=== PATIENT | female | born 1950 | race Caucasian/White ===

== ENCOUNTER 2018-03-13 11:33 | Outpatient (REF) | payer MEDICARE, BC, SELFPAY ==
[2018-03-15 10:54] LABS: Campylobacter PCR SEE COMMENTS; Salmonella PCR SEE COMMENTS; Shiga Toxin PCR SEE COMMENTS; Shigella/Enteroinvasive Ecoli SEE COMMENTS
== END 2018-03-13 11:34 ==
LOC: NCHCN 11:33
PROVIDERS: PCP Internal Medicine; Visit Provider Nurse Practitioner Family
DX: R19.7 Diarrhea, unspecified (principal)
CPT/HCPCS: 87505; 83630; 87177; 87324

== ENCOUNTER 2018-05-10 19:38 | Outpatient (REF) | payer MEDICARE, BC, SELFPAY ==
[2018-05-10 20:55] LABS: COMMENT (LAB VIEW ONLY) 111.54 mg/dL
== END 2018-05-10 19:58 ==
LOC: NCHCN 19:38
PROVIDERS: PCP Internal Medicine; Visit Provider Internal Medicine
DX: E11.9 Type 2 diabetes mellitus without complications (principal)
CPT/HCPCS: 82043; 82570

== ENCOUNTER 2018-06-04 15:57 | Outpatient (REF) | payer MEDICARE, BC, SELFPAY | END 2018-06-04 16:17 | LOC: NCHCN 15:57 | PROVIDERS: PCP Internal Medicine; Visit Provider Nurse Practitioner Family | DX: M25.561 Pain in right knee (principal) | CPT/HCPCS: 87070; 87205 ==

== ENCOUNTER 2018-06-22 19:16 | Outpatient (REF) | payer MEDICARE, BC, SELFPAY ==
[2018-06-22 21:26] LABS: Uric Acid 5.8 mg/dL (2.6-6.0)
== END 2018-06-22 19:36 ==
LOC: NCHCN 19:16
PROVIDERS: PCP Internal Medicine; Visit Provider Nurse Practitioner Family
DX: M11.80 Other specified crystal arthropathies, unspecified site (principal)
CPT/HCPCS: 84550

== ENCOUNTER 2018-12-12 12:32 | Outpatient (REF) | payer MEDICARE, BC, SELFPAY ==
[2018-12-12 21:13] LABS: ALT 32 U/L (12-78); AST 12 U/L (15-37); Albumin 3.7 g/dL (3.4-5.0); Alkaline Phosphatase 117 U/L (46-116); BUN 11 mg/dL (7-18); Bilirubin, Total 0.4 mg/dL (0.2-1.0); Calcium 8.6 mg/dL (8.5-10.1); Chloride 105 mmol/L (98-107); Glucose 103 mg/dL (70-100); HCT 39.5 % (36.0-46.0); HGB 12.8 g/dL (12.0-15.5); Mean Corp. HGB Concentration 32.4 g/dL (32.0-36.0); Mean Corpuscular Hemoglobin 29.3 pg (27.0-33.0); Mean Corpuscular Volume 90.4 fL (80-95); Mean Platelet Volume 9.2 fL (8.0-11.0); Platelet Count 195 x1000/uL (130-400); Potassium 4.1 mmol/L (3.5-5.1); RBC 4.37 m/cumm (4.00-5.20); RBC Distribution Width 15.2 % (11.7-14.6); Sodium 142 mmol/L (136-145); TSH 0.44 uIU/mL (0.358-3.74); Total Protein 6.4 g/dL (6.4-8.2); White Blood Cell Count 8.86 k/cumm (4.4-10.8)
== END 2018-12-12 12:52 ==
LOC: NCHCN 12:32
PROVIDERS: PCP Internal Medicine; Visit Provider Internal Medicine
DX: E11.9 Type 2 diabetes mellitus without complications (principal); I10 Essential (primary) hypertension; E03.9 Hypothyroidism, unspecified; R53.83 Other fatigue
CPT/HCPCS: 80053; 85027; 84443

== ENCOUNTER 2019-01-24 12:44 | Outpatient (REF) | payer MEDICARE, BC, SELFPAY ==
[2019-01-24 20:12] LABS: Alkaline Phosphatase 105 U/L (46-116); C-Reactive Protein 1.29 mg/dL (0.0-0.3); Creatine Kinase 51 U/L (26-192)
[2019-01-24 20:24] LABS: GGT 25 U/L (5-55)
[2019-01-24 20:49] LABS: ESR 18 MM/HR (0-30)
== END 2019-01-24 13:04 ==
LOC: NCHCN 12:44
PROVIDERS: PCP Internal Medicine; Visit Provider Internal Medicine
DX: R94.5 Abnormal results of liver function studies (principal); E11.9 Type 2 diabetes mellitus without complications; M89.9 Disorder of bone, unspecified
CPT/HCPCS: 82550; 85652; 82977; 84075; 86140

== ENCOUNTER 2019-04-24 10:24 | Outpatient (REF) | payer MEDICARE, BC, SELFPAY ==
[2019-04-24 21:21] LABS: ALT 25 U/L (14-59); Anion Gap 9.8 mmol/L (3-11); BUN 15 mg/dL (7-18); CO2 28.2 mmol/L (21.0-32.0); CREATININE 0.72 mg/dL (0.55-1.02); Calcium 8.3 mg/dL (8.5-10.1); Chloride 105 mmol/L (98-107); Glucose 132 mg/dL (70-100); LDL CHOLESTEROL 41 mg/dL (<100); Potassium 3.7 mmol/L (3.5-5.1); Sodium 143 mmol/L (136-145)
[2019-04-24 21:33] LABS: Creatine Kinase 65 U/L (26-192)
== END 2019-04-24 10:44 ==
LOC: NCHCN 10:24
PROVIDERS: PCP Internal Medicine; Visit Provider Internal Medicine
DX: E78.5 Hyperlipidemia, unspecified (principal)
CPT/HCPCS: 80048; 82550; 83721; 84460

== ENCOUNTER 2019-06-07 11:57 | Outpatient (REF) | payer MEDICARE, BC, SELFPAY ==
[2019-06-07 19:23] LABS: ALT 23 U/L (14-59); AST 9 U/L (15-37); Albumin 3.5 g/dL (3.4-5.0); Alkaline Phosphatase 98 U/L (46-116); Anion Gap 13.6 mmol/L (3-11); BUN 18 mg/dL (7-18); Bilirubin, Total 0.2 mg/dL (0.2-1.0); C-Reactive Protein 3.56 mg/dL (0.0-0.3); CO2 26.4 mmol/L (21.0-32.0); CREATININE 0.81 mg/dL (0.55-1.02); Chloride 106 mmol/L (98-107); Creatine Kinase 53 U/L (26-192); Glucose 99 mg/dL (74-106); Potassium 3.2 mmol/L (3.5-5.1); Sodium 146 mmol/L (136-145); Total Protein 6.5 g/dL (6.4-8.2)
[2019-06-07 19:24] LABS: Troponin I < 0.05 ng/Ml (<0.06)
[2019-06-07 19:26] LABS: Abs Immature Grans 0.68 k/cumm (0.0-0.09); HCT 35.6 % (36.0-46.0); HGB 11.6 g/dL (12.0-15.5); Mean Corp. HGB Concentration 32.6 g/dL (32.0-36.0); Mean Platelet Volume 8.8 fL (8.0-11.0); Platelet Count 296 x1000/uL (130-400); RBC 3.87 m/cumm (4.00-5.20); White Blood Cell Count 13.78 k/cumm (4.4-10.8)
[2019-06-07 20:36] LABS: Absolute Lymphocyte Count 1.93 k/cumm (1.2-3.4); Absolute Monocyte Count 0.55 k/cumm (0.11-0.7); Absolute Neutrophil Count 10.47 k/cumm (1.2-6.7)
[2019-06-07 20:37] LABS: Absolute Eosinophil Count 0.14 k/cumm (0.0-0.7); Diff Comment Manual Differential; RBC Morphology Normal
[2019-06-07 20:39] LABS: ESR 73 mm/hr (0-30)
== END 2019-06-07 12:17 ==
LOC: NCHCN 11:57
PROVIDERS: PCP Internal Medicine; Visit Provider Internal Medicine
DX: R42 Dizziness and giddiness (principal); R07.89 Other chest pain
CPT/HCPCS: 80053; 82550; 85652; 84484; 85025; 86140

== ENCOUNTER 2019-06-27 12:21 | Outpatient (REF) | payer MEDICARE, BC, SELFPAY ==
[2019-06-27 19:10] LABS: COMMENT (LAB VIEW ONLY) 94.33 mg/dL; Microalb ug/mg Crea 24.6 ug/mg Cr
== END 2019-06-27 12:41 ==
LOC: NCHCN 12:21
PROVIDERS: PCP Internal Medicine; Visit Provider Internal Medicine
DX: E11.9 Type 2 diabetes mellitus without complications (principal); E78.5 Hyperlipidemia, unspecified; M35.3 Polymyalgia rheumatica
CPT/HCPCS: 82043; 82570

== ENCOUNTER 2019-08-29 12:54 | Outpatient (REF) | payer MEDICARE, BC, SELFPAY ==
[2019-08-29 19:53] LABS: ESR 16 mm/hr (0-30)
== END 2019-08-29 13:14 ==
LOC: NCHCN 12:54
PROVIDERS: PCP Internal Medicine; Visit Provider Internal Medicine
DX: M35.3 Polymyalgia rheumatica (principal); E11.9 Type 2 diabetes mellitus without complications; F51.04 Psychophysiologic insomnia
CPT/HCPCS: 85652

== ENCOUNTER 2019-09-18 10:57 | Outpatient (REF) | payer MEDICARE, BC, SELFPAY | END 2019-09-18 11:17 | LOC: NCHCN 10:57 | PROVIDERS: PCP Internal Medicine; Visit Provider Nurse Practitioner Family | DX: L03.031 Cellulitis of right toe (principal) | CPT/HCPCS: 87070; 87205 ==

== ENCOUNTER 2020-02-17 16:47 | Outpatient (REF) | payer MEDICARE, BC, SELFPAY ==
[2020-02-17 19:34] LABS: TSH 0.31 uIU/mL (0.36-3.74)
== END 2020-02-17 17:07 ==
LOC: NCHCN 16:47
PROVIDERS: PCP Internal Medicine; Visit Provider Nurse Practitioner Family
DX: E03.9 Hypothyroidism, unspecified (principal)
CPT/HCPCS: 84443

== ENCOUNTER 2020-11-24 13:44 | Outpatient (REF) | payer MEDICARE, BC, SELFPAY ==
--- OUTSIDE RECORDS SUMMARY | 2020-11-24 13:49 | XMS_ITS ---
:1950 Author Care Team Providers Name Role Phone PAZ STRAUSS MD Primary Care Provider [phone] Allergies Code Code System Name Reaction Severity Status Onset 2670 RxNorm Codeine ? ? Active ? 283970 RxNorm Dilaudid ? ? Active ? 67180 RxNorm Dyazide ? ? Active ? 4821 RxNorm Glipizide ? ? Active ? 809462 RxNorm Levemir U-100 ? ? Active ? Insulin 83663 RxNorm Lisinopril ? ? Active ? 93712 RxNorm Locoid ? ? Active ? 6809 RxNorm Metformin ? ? Active ? Sulfa ? ? Active ? (Sulfonamide Antibiotics) 441228 RxNorm Vicodin ? ? Active ? 943020 RxNorm Zocor ? ? Active ? Medications Name Status Start Date Stop Date ? ? Advair Diskus 250 mcg-50 mcg/dose Completed ? 08/07/2018 powder for inhalation Advair Diskus 500 mcg-50 mcg/dose powder for inhalation Active ? Not available Take 1 inhalation every morning. amoxicillin 500 mg capsule Active ? Not a vailable amoxicillin 875 mg-potassium Active ? Not available clavulanate 125 mg tablet atorvastatin 10 mg tablet Active ? Not av ailable BD Ultra-Fine Vivienne Pen Needle 32 gauge Active ? Not available x BD Ultra-Fine Short Pen Needle 31 gauge Active ? Not available x 11/29 bupropion HCl SR 150 mg tablet,12 hr Active ? Not available sustained-release Centrum Silver Active ? Not available 1 tablet daily every evening Fish Oil 1,000 mg (120 mg-180 mg) capsule Active ? Not available Take 3 capsules every day by oral route in the evening. fluconazole 150 mg tablet Completed ? 2018 fluticasone propionate 110 mcg/actuation HFA aerosol inhaler Act gilles ? Not available Inhale 1 puff twice a day by inhalation route as needed. furosemide 20 mg tablet Active ? Not avai lable Take 1 tablet every morning glimepiride 2 mg tablet Active ? Not avai lable IBU 800 mg tablet Completed ? 08/13/2018 indomethacin 25 mg capsule Completed ? 08/13 Take 1 capsule twice a day by oral route. Lantus Solostar U-100 Insulin 100 Active ? Not available unit/mL (3 mL) subcutaneous pen levofloxacin 250 mg tablet Completed ? 08/07 levofloxacin 750 mg tablet Completed ? 08/07 levothyroxine Active ? Not available 150 MCG every morning levothyroxine 150 mcg tablet Active ? Not available losartan 100 mg tablet Active ? Not avail able losartan 50 mg tablet Active ? Not availa ble meloxicam 15 mg tablet Completed ? 8 methylprednisolone 4 mg tablets in a Active ? Not available dose pack metoprolol tartrate 25 mg tablet Active ? Not available mirtazapine 15 mg tablet Active ? Not renita ilable montelukast 10 mg tablet Active ? Not renita ilable mupirocin 2 % topical ointment Completed ? 0 08/07/2018 prednisone 10 mg tablet Completed ? 07/12/20 18 prednisone 20 mg tablet Active ? Not avai lable ProAir HFA 90 mcg/actuation aerosol inhaler Completed ? 08/13/2018 Inhale 2 puffs every 4 hours by inhalation route. Restasis 0.05 % eye drops in a dropperette Active ? Not available INSTILL 1 DROP INTO AFFECTED EYE(S) BY OPHTHALMIC ROUTE EVERY 1 2 HOURS Serevent Diskus 50 mcg/dose powder for Active ? Not available inhalation Shingrix (PF) 50 mcg/0.5 mL Active ? Not available intramuscular suspension, kit Silenor 3 mg tablet Active ? Not availabl e torsemide 20 mg tablet Active ? Not avail able tramadol 50 mg tablet Active ? Not availa ble Vitamin C 1,000 mg tablet Completed ? 2018 Take 1 tablet every day by oral route. Problems Name Status Onset Date Source ? Diabetes Mellitus Active 07/12/2018 ? Essential Hypertension Active 07/12/2018 ? Verruca Vulgaris Active 08/07/2018 ? Hypothyroidism Active 08/07/2018 ? Tobacco User Active 08/07/2018 ? Insomnia Active 08/07/2018 ? Migraine Active 08/07/2018 ? Serous Otitis Media Active 08/07/2018 ? Allergic Rhinitis Active 08/07/2018 ? Chronic Obstructive Lung Disease Active 08/07/2018 ? Gastroesophageal Reflux Disease Active 08/07/2018 ? Irritable Bowel Syndrome Active 08/07/2018 ? Kidney Stone Active 08/07/2018 ? Psoriasis Active 08/07/2018 ? Alopecia Active 08/07/2018 ? Low Back Pain Active 08/07/2018 ? Knee Pain Active ? History Procedures Date Name Performed by ? 08/17/2018 Knee Arthroscopy/surgery Information not available Notes: R knee arthr. w/limited chondr oplasty LFC w/PMM of posterior horn 07/17/1996 Cholecystectomy Information not avai lable Notes: Laparoscopic w/ Operative Chol angiogram ? Hysterectomy Information not avai lable ? Orthopedic Surgery Information not avai lable Notes: 2004 & 2007 shoulder scopes 07/12/2018 XR, Tibia + Fibula, 2 View [facility] Radiology (Internal) [address], [place] [id number] (Work Place) 07/12/2018 US, Duplex, Venous, Lower Extremity, Nor [facility] Radiology (Internal) Unilateral [address] [place] [address] (Work Place) 07/12/2018 MRI, Knee, W/o Contrast [facility] Radiology (Internal) [address] [place] [address] (Work Place) Results Lab Results Date Name Specimen Result Interpretation Description Value Range Status Address ? 12/22/2019 CBC W/ Auto BLD ? Wbc 9.7 10*[facility] L ab (Internal) : [address] ? ? BLD ? Rbc 4.15 4.10-5.30 Final [place] 10*6/uL 10*6/uL [facility] L [facility] (Internal) : [address] ? ? BLD ? Hgb 12.7 g/dL 12.0-16.0 Final Nort h g/dL [facility] L ab (Internal) : [address] ? ? BLD ? Hct 38.5 % 37.0-47.0 Final [facility] L ab (Internal) : [address] ? ? BLD ? Mcv 92.8 fL 80.0-96.0 [facility] [address] ? ? BLD ? Mch 30.6 pg 26.0-32.0 Final [facility] L ab (Internal) : [address] ? ? BLD ? Mchc 33.0 g/dL 31.0-35.0 Final Nort h g/dL [facility] L ab (Internal) : [address] ? ? BLD High Rdw 15.1 % 11.5-14.5 Final [facility] L ab (Internal) : [address] ? ? BLD ? Plt 188 10*3/uL 130-450 Final Nort h 10*3/uL [facility] L ab (Internal) : [address] ? ? BLD ? Anc 7.49 ? [facility] 10*3/uL [facility] L ab (Internal) : [address] ? ? BLD High Nlr 5.90 0.00-3.20 Final [facility] L ab (Internal) : [address], [place] ? ? BLD High Neutro 77.2 % 40.0-75.0 Final [facility] L ab (Internal) : [address] ? ? BLD Low Lymph 13.1 % 20.0-50.0 Final [facility] L ab (Internal) : [address] ? ? BLD ? [place] 6.0 % 2.0-10.0 Final [facility] L ab (Internal) : [address] ? ? BLD ? Eos 2.8 % 1.0-6.0 % Final [facility] L ab (Internal) : [address] ? ? BLD ? Baso 0.3 % 0.0-1.0 % Final [facility] L ab (Internal) : [address] ? ? BLD ? Ig 0.6 % 0.0-0.9 % Final [facility] L ab (Internal) : [address] t 12/22/2019 Urinalysis, UR ? UA-color yellow pale Final [place] Dipstick, yellow [facility] Micro (Internal) : [address], [place] ? ? UR ? UA-appea clear clear Final [place] r [facility] ab (Internal) : [address] ? ? UR ? UA-spec 1.015 1.003-1.0 Final [place] [facility] ab (Internal) : [address] [place] ? ? UR ? UA-pH 5.5 [pH] 4.6-8.0 Final [place] [pH] [facility] ab (Internal) : [address] ? ? UR ? [facility]A-leuk negative negative [facility] [address] ? ? UR ? UA-nitri negative negative Final [facility] ab (Internal) : [address] ? ? UR ? UA-prot negative negative Final [facility] ab (Internal) : [address] ? ? UR ? UA-gluc negative negative Final [facility] ab (Internal) : [address] [place] ? ? UR ? UA-keton negative negative Final [facility] ab (Internal) : [address] [place] ? ? UR ? UA-urobi normal normal Final [facility] ab (Internal) : [address] [place] ? ? UR ? UA-bili negative negative Final [facility] ab (Internal) : [address] [place] ? ? UR ABNORMAL UA-blood trace negative Final [facility] ab (Internal) : [address] 12/22/2019 Urinalysis, UR ? UA-WBC 0-3 [hpf] 0-3 [hpf] F inal [place] Microscopic Count Hospital L ab (Internal) : [address] ? ? UR ? UA-RBC 0-2 [hpf] 0-2 [hpf] Final [facility] ab (Internal) : [address] ? ? UR ? UA-bacte rare [hpf] none seen Final [place] nathen [hpf] [facility] ab (Internal) : [address] ? ? UR ? UA-epith rare [hpf] none seen Final [place] elial [hpf] [facility] (Internal) : [address] ? ? UR ABNORMAL UA-mucus rare [hpf] none seen Final [place] [hpf] [facility] (Internal) : [address] 12/22/2019 RBC BLD ? Aniso small ? Final [place] Morphology, Count ry Blood Hospital L ab (Internal) : [address] ? ? BLD ? Polychro occasional ? Final Nor th m [facility] (Internal) : [address] 12/22/2019 D-dimer, PLASMA ? Dimq 0.42 mg/L 0.00-0.50 Final [place] Quant, mg/L [facility] Plasma Hospital L ab (Internal) : [address] 12/22/2019 CMP, Serum S High g/r 149 mg/dL 74-106 Final [place] or Plasma mg/dL [facility] (Internal) : [address] ? ? S ? Bun 16 mg/dL 7-17 Final [place] mg/dL [facility] (Internal) : [address] ? ? S ? Crea 0.70 mg/dL 0.52-1.04 Final Nor th mg/dL [facility] (Internal) : [address] ? ? S ? Ca 9.4 mg/dL 8.4-10.2 Final [place] mg/dL [facility] (Internal) : [address] ? ? S ? Na 139 mmol/L 137-145 Final [place] mmol/L [facility] ab (Internal) : [address] ? ? S ? K 4.3 mmol/L 3.5-5.1 Final [place] mmol/L [facility] L ab (Internal) : [address] ? ? S ? Cl 99 mmol/L 98-107 Final [place] mmol/L [facility] (Internal) : [address] ? ? S ? Tco2 27.0 mmol/L 22.0-30.0 Final No rth mmol/L [facility] (Internal) : [address] ? ? S ? Tp 7.3 g/dL 6.3-8.2 Final [place] g/dL [facility] L [facility] (Internal) : [address] ? ? S ? Alb 4.3 g/dL 3.5-5.0 Final [place] g/dL [facility] L [facility] (Internal) : [address] ? ? S ? Tbil 0.6 mg/dL 0.2-1.3 Final [place] mg/dL [facility] L [facility] (Internal) : [address] ? ? S ? Alp 88 U/L 38-126 Final [place] U/L [facility] L ab (Internal) : [address] ? ? S ? Alt 21 U/L 9-52 U/L Final [place] (Sgpt) [facility] (Internal) : [address] ? ? S ? Ast 23 U/L 14-36 U/L Final [place] (Sgot) [facility] (Internal) : [address] 12/22/2019 CRP, High S High Rcrp 6.94 mg/dL 0.10-0.30 Fin al [place] Sensitivity mg/dL Count ry , Serum or Hospit al Lab Plasma (Internal) : [address] 08/02/2018 CBC W/ Auto BLD - Wbc 8.9 10*3/uL 5.0-10.0 F inal [place] Diff 10*3/uL [facility] (Internal) : [address] ? ? BLD Low Rbc 4.08 4.10-5.30 Final [place] 10*6/uL 10*6/uL [facility] (Internal) : [address] ? ? BLD - Hgb 12.2 g/dL 12.0-16.0 Final Nort h g/dL [facility] L ab (Internal) : [address] ? ? BLD - Hct 37.6 % 37.0-47.0 Final [place] % [facility] L ab (Internal) : [address] ? ? BLD - Mcv 92.2 fL 80.0-96.0 Final [facility] L ab (Internal) : [address] ? ? BLD - Mch 29.9 pg 26.0-32.0 Final [facility] Hospital L ab (Internal) : [address] ? ? BLD - Mchc 32.4 g/dL 31.0-35.0 Final Nort h g/dL [facility] L ab (Internal) : [address] ? ? BLD High Rdw 15.5 % 11.5-14.5 Final [facility] L ab (Internal) : [address] ? ? BLD - Plt 167 10*3/uL 130-450 Final Nort h 10*3/uL [facility] L ab (Internal) : [address] ? ? BLD - Anc 6.60 ? Final [place] 10*3/uL [facility] L ab (Internal) : [address] ? ? BLD - Neutro 74.2 % 40.0-75.0 Final [facility] L ab (Internal) : [address] ? ? BLD Low Lymph 16.0 % 20.0-50.0 Final [facility] L ab (Internal) : [address] ? ? BLD - [place] 4.9 % 2.0-10.0 Final [facility] L ab (Internal) : [address] ? ? BLD - Eos 3.0 % 1.0-6.0 % Final [facility] L ab (Internal) : [address] ? ? BLD - Baso 0.7 % 0.0-1.0 % Final [facility] Hospital L ab (Internal) : [address] ? ? BLD High Ig 1.2 % 0.0-0.9 % Final [facility] Hospital L ab (Internal) : [address] 08/02/2018 BMP, Serum S High g/r 143 mg/dL 74-106 Final North or Plasma mg/dL [facility] L ab (Internal) : [address] ? ? S - Bun 13 mg/dL 7-17 Final North mg/dL [facility] L ab (Internal) : [address] ? ? S - Crea 0.60 mg/dL 0.52-1.04 Final Nor mg/dL [facility] L ab (Internal) : [address] ? ? S - Ca 8.8 mg/dL 8.4-10.2 Final [place] mg/dL [facility] L ab (Internal) : [address] ? ? S - Na 141 mmol/L 137-145 Final [place] mmol/L [facility] L ab (Internal) : [address] ? ? S - K 4.2 mmol/L 3.5-5.1 Final [place] mmol/L [facility] L ab (Internal) : [address] ? ? S - Cl 106 mmol/L 98-107 Final [place] mmol/[facility] L ab (Internal) : [address] ? ? S - Tco2 25.0 mmol/L 22.0-30.0 Final No rth mmol/L [facility] L ab (Internal) : [address] 08/02/2018 RBC BLD - Aniso small ? Final [place] Morphology, Count Blood Hospital L ab (Internal) : [address] ? ? BLD - Polychro occasional ? Final [facility] L ab (Internal) : [address] 08/03/2017 Venipunctur BLD ? Venpn* ? ? Final [facility] L ab (Internal) : [address] 08/03/2017 Neutrophil BLD ? Anc-manu 6.95 ? Final [place] Count, al 10*3/uL [facility] Lab (Anc), (Internal) : Blood [address] t 08/03/2017 Differentia BLD High Polys 77 % 40-75 % Final [place] l, Manual, Countr y Blood Hospital L ab (Internal) : [address] ? ? BLD ? Bands 4 % 0-5 % Final [facility] L ab (Internal) : [address] ? ? BLD Low Lymphs 10 % 20-50 % Final [facility] L ab (Internal) : [address] ? ? BLD ? [place] 4 % 2-10 % Final [facility] L ab (Internal) : [address] ? ? BLD ? Eos 3 % 0-6 % Final [facility] Hospital L ab (Internal) : [address] ? ? BLD High Baso 2 % 0-1 % Final [facility] Hospital L ab (Internal) : [address] ? ? BLD ? Atyp 0 % ? Final [facility] L ab (Internal) : [address] ? ? BLD ? Plts, adequate adequate Final [place] Est. [facility] L ab (Internal) : [address] ? ? BLD ABNORMAL RBC abnormal normal Final [place] [facility] (Internal[facility] : [address] ? ? BLD ? Aniso occasional ? Final [facility] L ab (Internal) : [address] ? ? BLD ? Polychro occasional ? Final Nor th m [facility] L ab (Internal) : [address] 08/03/2017 Renal S High g/r 134 mg/dL 74-106 Final Nor th Function mg/dL [facility] Serum (Internal) : [address] ? ? S ? Bun 13 mg/dL 7-17 Final North mg/dL [facility] L ab (Internal) : [address] ? ? S ? Crea 0.70 mg/dL 0.52-1.04 Final Nor th mg/dL [facility] L ab (Internal) : [address] ? ? S ? Ca 9.0 mg/dL 8.4-10.2 Final North mg/dL [facility] L ab (Internal) : [address] ? ? S ? Phos 4.0 mg/dL 2.5-4.5 Final [place] mg/dL [facility] L ab (Internal) : [address] t ? ? S ? Na 138 mmol/L 137-145 Final North mmol/L [facility] L ab (Internal) : [address] ? ? S ? K 4.1 mmol/L 3.5-5.1 Final [place] mmol/L [facility] L ab (Internal) : [address] ? ? S ? Cl 103 mmol/L 98-107 Final [place] mmol/L [facility] L ab (Internal) : [address] ? ? S ? Tco2 24.0 mmol/L 22.0-30.0 Final No rth mmol/L [facility] L ab (Internal) : [address] ? ? S ? Alb 4.1 g/dL 3.5-5.0 Final [place] g/dL [facility] L [facility] (Internal) : [address] ? ? S Low GFR 83 >89 Final [place] (Calc) [facility] L [facility] (Internal) : [address] t 08/03/2017 CBC W/ Auto BLD ? Wbc 8.6 10*3/uL 5.0-10.0 F inal [place] Diff 10*3/uL [facility] L ab (Internal) : [address] ? ? BLD ? Rbc 4.11 4.10-5.30 Final [place] 10*6/uL 10*6/uL [facility] L ab (Internal) : [address] ? ? BLD Low Hgb 11.9 g/dL 12.0-16.0 Final Nort h g/dL [facility] L ab (Internal) : [address] ? ? BLD ? Hct 37.4 % 37.0-47.0 Final [facility] L ab (Internal) : [address] ? ? BLD ? Mcv 91.0 fL 80.0-96.0 Final [facility] L ab (Internal) : [address] ? ? BLD ? Mch 29.0 pg 26.0-32.0 Final [facility] Hospital L ab (Internal) : [address] ? ? BLD ? Mchc 31.8 g/dL 31.0-35.0 Final Nort h g/dL [facility] L ab (Internal) : [address] t ? ? BLD High Rdw 15.4 % 11.5-14.5 Final [facility] L ab (Internal) : [address] ? ? BLD ? Plt 182 10*3/uL 130-450 Final Nort h 10*3/uL [facility] L ab (Internal) : [address], [address] Past Encounters 06/25/2020 Stress Fracture of Tibia; Antalgic Gait Capri Yates, PT CWS: [address] [facility], [address], [place] [address], Ph. 05/26/2020 Stress Fracture of Tibia; Antalgic Gait Capri Yates, PT CWS: [address] [facility], [address], [place] [address], Ph. 06/25/2019 Calcaneal Spur; Pain in Right Heel; Abno rmal Posture; Stiffness of Right Ankle; Muscle Weakness Sharon Fox, PT: [address] [facility] [facility] [address], [place] [address], Ph. Social History Tobacco Smoking Status Current Every Day Smoker Vaccine List None recorded. Plan of Care Reminders Provider Appointments None ? ? recorded. Lab None ? ? recorded. Referral None ? ? recorded. Procedures None ? ? recorded. Surgeries None ? ? recorded. Imaging None ? ? recorded. Vitals 08/02/2018 11:30AM Follow Up 30 Height Weight BMI Blood Pressure 162.56 cm 90.22 kg 34.1 kg/m2 186/82 mm[Hg] 07/12/2018 11:30AM Consult 30 Height Weight BMI Blood Pressure 162.56 cm 86.18 kg 32.6 kg/m2 144/76 mm[Hg] 01/13/2011 Height Weight 160.02 cm 86.18 kg 11/18/2010 Height Weight 160.02 cm 86.18 kg 09/30/2010 Height Weight 160.02 cm 86.18 kg
[2020-11-24 16:47] LABS: Hemoglobin A1C 6.7 % (<5.7)
[2020-11-24 16:55] LABS: Calcium 8.5 mg/dL (8.5-10.1); TSH (W/Ref FT4) 1.62 uIU/mL (0.36-3.74)
[2020-11-26 01:17] LABS: Vitamin D 25 Total 24.3 ng/mL (30-100)
== END 2020-11-24 13:45 | disposition home or self-care (01) ==
LOC: NCHCN 13:44
PROVIDERS: PCP Internal Medicine; Visit Provider Nurse Practitioner Family
DX: E11.9 Type 2 diabetes mellitus without complications (principal); E89.0 Postprocedural hypothyroidism; M89.9 Disorder of bone, unspecified
CPT/HCPCS: 82306; 82310; 83036; 84443

== ENCOUNTER 2020-12-01 21:28 | Outpatient (REF) | payer MEDICARE, BC, SELFPAY ==
[2020-12-01 17:41] LABS: ALT 45 U/L (14-59); AST 26 U/L (15-37); Albumin 3.7 g/dL (3.4-5.0); Alkaline Phosphatase 88 U/L (46-116); Bilirubin, Direct 0.1 mg/dL (0.0-0.2); Bilirubin, Total 0.5 mg/dL (0.2-1.0); Total Protein 6.1 g/dL (6.4-8.2)
[2020-12-01 17:56] LABS: GGT 47 U/L (5-55)
[2020-12-03 04:36] LABS: Vitamin D 25 Total 25.2 ng/mL (30-100)
== END 2020-12-01 21:29 | disposition home or self-care (01) ==
LOC: NCHCN 21:28
PROVIDERS: Nurse Practitioner Family; PCP Internal Medicine; Visit Provider Internal Medicine
DX: R16.0 Hepatomegaly, not elsewhere classified (principal); E89.0 Postprocedural hypothyroidism; E55.9 Vitamin D deficiency, unspecified
CPT/HCPCS: 80076; 82306; 82977

== ENCOUNTER 2021-03-15 19:50 | Outpatient (REF) | payer MEDICARE, BC, SELFPAY ==
[2021-03-17 16:25] LABS: COVID-19 RT-PCR UVMMC Result Positive (Negative)
== END 2021-03-15 19:51 | disposition home or self-care (01) ==
LOC: NCHCN 19:50
PROVIDERS: PCP Internal Medicine; Visit Provider Internal Medicine
DX: Z20.822 Contact with and (suspected) exposure to COVID-19 (principal); R06.02 Shortness of breath
CPT/HCPCS: U0003

== ENCOUNTER 2021-05-13 14:47 | Outpatient (REF) | payer MEDICARE, BC, SELFPAY ==
[2021-05-13 20:28] LABS: COMMENT (LAB VIEW ONLY) 84.44 mg/dL; Microalb ug/mg Crea 7.2 ug/mg Cr
== END 2021-05-13 14:48 | disposition home or self-care (01) ==
LOC: NCHCN 14:47
PROVIDERS: PCP Internal Medicine; Visit Provider Internal Medicine
DX: E11.9 Type 2 diabetes mellitus without complications (principal)
CPT/HCPCS: 82043; 82570

== ENCOUNTER 2022-09-23 11:37 | Outpatient (REF) | payer MEDICARE, BC, SELFPAY ==
[2022-09-23 19:20] LABS: HCT 34.6 % (36.0-46.0); HGB 11.1 g/dL (11.2-15.7); MCH 29.3 pg (27.0-33.0); MCHC 32.1 % (32.0-36.0); MCV 91 fL (80-95); MPV 8.9 fL (8.0-11.0); Platelet Count 163 10^3/uL (130-400); RBC 3.79 10^6/uL (3.93-5.22); RDW 14.9 % (11.7-14.6); RDW-SD 49.6 fL
[2022-09-23 19:41] LABS: ALT 29 U/L (14-59); Anion Gap 6.5 mmol/L (3-11); BUN 13 mg/dL (7-18); CO2 29.5 mmol/L (21.0-32.0); CREATININE 0.7 mg/dL (0.55-1.02); Calcium 8.7 mg/dL (8.5-10.1); Chloride 107 mmol/L (98-107); Creatine Kinase 55 U/L (26-192); Glucose 152 mg/dL (74-106); Potassium 4.4 mmol/L (3.5-5.1); Sodium 143 mmol/L (136-145); TSH 0.19 uIU/mL (0.36-3.74)
[2022-09-23 19:55] LABS: Calculated LDL 15 mg/dL (<100); Cholesterol 99 mg/dL (<200); HDL Cholesterol 32 mg/dL (40-60); Triglyceride 260 mg/dL (<150)
== END 2022-09-23 11:38 | disposition home or self-care (01) ==
LOC: NCHCN 11:37
PROVIDERS: PCP Internal Medicine; Visit Provider Internal Medicine
DX: E11.9 Type 2 diabetes mellitus without complications (principal); F41.8 Other specified anxiety disorders; J32.2 Chronic ethmoidal sinusitis; I10 Essential (primary) hypertension
CPT/HCPCS: 80048; 80061; 82550; 85027; 84443; 84460

== ENCOUNTER 2022-10-24 13:00 | Outpatient (REF) | payer MEDICARE, BC, SELFPAY ==
[2022-10-24 18:50] LABS: HCT 36.5 % (36.0-46.0); HGB 11.6 g/dL (11.2-15.7); MCH 29.3 pg (27.0-33.0); MCHC 31.8 % (32.0-36.0); MCV 92 fL (80-95); MPV 8.9 fL (8.0-11.0); Platelet Count 149 10^3/uL (130-400); RBC 3.96 10^6/uL (3.93-5.22); RDW 15.2 % (11.7-14.6); RDW-SD 50.5 fL; Reticulocyte 2.4 % (0.5-2.4); WBC 7.98 10^3/uL (4.4-10.8)
[2022-10-24 19:04] LABS: Iron 44 ug/dL (50-170); Total Iron Binding Capacity 281 ug/dL (250-450); Transferrin Sat 16 % (15-50)
[2022-10-24 19:31] LABS: Ferritin 151 ng/mL (8-252); TSH (W/Ref FT4) 0.19 uIU/mL (0.36-3.74); Vitamin B12 783 pg/mL (193-986)
[2022-10-24 20:12] LABS: FREE T4 1.13 ng/dL (0.76-1.46)
== END 2022-10-24 13:01 | disposition home or self-care (01) ==
LOC: NCHCN 13:00
PROVIDERS: PCP Internal Medicine; Visit Provider Internal Medicine
DX: D64.9 Anemia, unspecified (principal); E89.0 Postprocedural hypothyroidism
CPT/HCPCS: 85027; 82607; 82728; 83540; 83550; 84439; 84443; 85045

== ENCOUNTER 2023-01-09 13:25 | Outpatient (REF) | payer MEDICARE, BC, SELFPAY ==
[2023-01-09 19:25] LABS: TSH 1.03 uIU/mL (0.36-3.74)
== END 2023-01-09 13:26 | disposition home or self-care (01) ==
LOC: NCHCN 13:25
PROVIDERS: PCP Internal Medicine; Visit Provider Internal Medicine
DX: M75.102 Unspecified rotator cuff tear or rupture of left shoulder, not specified as traumatic (principal); E11.9 Type 2 diabetes mellitus without complications; E03.9 Hypothyroidism, unspecified; Z82.49 Family history of ischemic heart disease and other diseases of the circulatory system
CPT/HCPCS: 84443

== ENCOUNTER 2023-01-25 16:37 | Outpatient (REF) | payer MEDICARE, BC, SELFPAY ==
[2023-01-25 20:49] LABS: C Diff PCR Negative (Negative)
[2023-01-26 23:20] LABS: Campylobacter PCR Negative (Negative); Salmonella PCR Negative (Negative); Shiga Toxin PCR Negative (Negative); Shigella/Enteroinvasive Ecoli Negative (Negative)
== END 2023-01-25 16:38 | disposition home or self-care (01) ==
LOC: NCHCN 16:37
PROVIDERS: PCP Internal Medicine; Visit Provider Nurse Practitioner Family
DX: R19.7 Diarrhea, unspecified (principal)
CPT/HCPCS: 87493; 87505; 83630

== ENCOUNTER → 2023-09-05 08:36 | Outpatient (BNVA) | payer MEDICARE, BC, SELFPAY | PROVIDERS: PCP Internal Medicine; Referring Provider Internal Medicine; Visit Provider Student in an Organized Health Care Education/Training Program | DX: S46.011A Strain of muscle(s) and tendon(s) of the rotator cuff of right shoulder, initial encounter (principal); W10.8XXA Fall (on) (from) other stairs and steps, initial encounter | CPT/HCPCS: 99213 ==

== ENCOUNTER → 2023-09-26 03:14 | Outpatient (CLI) | payer MEDICARE, BC, SELFPAY ==
--- NOTE | 2023-09-26 06:30 | DI.MRI_ITS ---
Exam(s) MR UPPER JOINT RT WO EXAM: MR UPPER JOINT RT WO CLINICAL HISTORY: R SHOULDER PAIN,rt rotator cuff tear,m75.101 TECHNIQUE: Multiplanar multisequence MRI of the shoulder was performed. COMPARISON: CR XR SHOULDER MIN 2V RT from 07/14/2023 FINDINGS: There is motion artifact on all sequences MARROW:There is no evidence of fracture, Hill-Sachs deformity, nor ominous osseous lesions. GLENOHUMERAL JOINT: There is significant superior subluxation of the humeral head in the osseous sapna oid and significant diminution of the subacromial space. There is moderate degenerative change in the glenohumeral joint with joint space narrowing and loss o f articular cartilage. Also small osteophyte on the inferior articular surface of the humeral head. There are no degenerative subarticular cysts. Artifact seen laterally is related to prior remote ro tator cuff surgery tear. ROTATOR CUFF MECHANISM: AC JOINT/ACROMIUM: There postsurgical changes in the AC joint.. There is no evidence of os acromiale. Supraspinatus: There is a large full-thickness tear with retraction musculotendinous junction to the medial 3rd of the humeral head. Some muscle atrophy. Infraspinatus: Also large full-thickness tear of the infraspinatus with retraction of the musculotend inous junction. Muscle atrophy. Teres Minor: Intact. Compensatory hypertrophy evident. No evidence of tear nor muscle atrophy. Subscapularis/anterior cuff: Large full-thickness tear of the anterior cuff also evident. Also with retraction of the musculotendinous junction. BICEPS TENDON: Biceps tendon is within the intertubercular groove but is also perched over the anteri or aspect of the lesser tuberosity. It is not detached from the anterosuperior labrum. LABRUM: There is attenuation of the superior labrum posterior to the biceps attachment site probably related to chronic wear and tear surface attenuation. The posterior labrum also exhibits surface irr egularity. There is no obvious tear of the anterior labrum and inferior labrum. The inferior glenoh umeral ligament appears intact. IMPRESSION: 1. There is evidence of remote rotator cuff surgery. However, there are now large full-thickness tea rs of the supraspinatus, infraspinatus, and anterior cuff-subscapularis with retraction of the muscul otendinous junctions and some muscle atrophy as described above. The teres minor remains intact and exhibits compensatory hypertrophy. 2. There is significant upward subluxation of the humeral head in the osseous glenoid related to the above findings with significant diminution of the subacromial space. 3. The biceps tendon remains attached to the anterosuperior labrum but is perched upon the anterior a spect of the lesser tuberosity 4. There is multifocal labral surface attenuation/surface tearing. 5. There are moderate degenerative changes in the glenohumeral joint. Small joint effusion noted. No loose intra-articular body seen. DATA REPOSITORY:
== END ==
PROVIDERS: PCP Internal Medicine; Visit Provider Student in an Organized Health Care Education/Training Program
DX: S46.011A Strain of muscle(s) and tendon(s) of the rotator cuff of right shoulder, initial encounter (principal); X58.XXXA Exposure to other specified factors, initial encounter; Z98.890 Other specified postprocedural states
CPT/HCPCS: 73221

== ENCOUNTER → 2023-10-03 13:55 | Outpatient (BNVA) | payer MEDICARE, BC, SELFPAY | PROVIDERS: PCP Internal Medicine; Referring Provider Internal Medicine; Visit Provider Student in an Organized Health Care Education/Training Program | DX: S46.011A Strain of muscle(s) and tendon(s) of the rotator cuff of right shoulder, initial encounter (principal); W19.XXXA Unspecified fall, initial encounter | CPT/HCPCS: 99213 ==

== ENCOUNTER → 2023-10-09 02:55 | Outpatient (CLI) | payer MEDICARE, BC, SELFPAY ==
--- NOTE | 2023-10-09 15:00 | DI.CT_ITS ---
Exam(s) CT UPPER EXTREMITY RT WO EXAM: CT UPPER EXTREMITY RT WO CLINICAL HISTORY: Pain, Surgical planning-DOS 10/19,RT ROTATOR CUFF TEAR,S46.011A. TECHNIQUE: Imaging Protocol: Axial computed tomography images with coronal and sagittal reformatted images were created and reviewed. COMPARISON: CR XR SHOULDER MIN 2V RT from 07/14/2023 MR MR UPPER JOINT RT WO from 09/26/2023 FINDINGS: Bones: There is no evidence of fracture or dislocation. Prior distal clavicular resection. The humeral head is superiorly positioned. Spurring at the greater tuberosity. Subjacent subchondra l degenerative cysts. No cellulitic or osteomyelitic changes are identified. No lytic or sclerotic lesions are identified. The bones appear osteoporotic. Joints: Narrowing of the glenohumeral joint space. Mild periarticular spurring. muscular atrophy, particularly supraspinatus. Soft Tissues: Normal. The visualized portions of the lungs are clear. IMPRESSION: Humeral head superiorly positioned consistent with chronic rotator cuff tear. Degenerative changes a t the greater tuberosity and glenohumeral joint. RADIATION DOSE DELIVERED: Total DLP Total DLP DATA REPOSITORY: All CT scans at this facility are submitted to the National Radiology Data Registry (NRDR) Dose Index Registry (DIR) with the [employer] ([employer]). RADIATION OPTIMIZATION: All CT scans at this facility use at least one of these dose optimization te chniques: automated exposure control; mA and/or kV adjustment per patient size (includes targeted exa ms where dose is matched to clinical indication); or iterative reconstruction.
== END ==
PROVIDERS: PCP Internal Medicine; Visit Provider Student in an Organized Health Care Education/Training Program
DX: M75.111 Incomplete rotator cuff tear or rupture of right shoulder, not specified as traumatic (principal)
CPT/HCPCS: 73200

== ENCOUNTER → 2023-10-17 11:20 | Outpatient (BNVA) | payer MEDICARE, BC, SELFPAY | PROVIDERS: PCP Internal Medicine; Referring Provider Internal Medicine; Visit Provider Student in an Organized Health Care Education/Training Program | DX: M75.101 Unspecified rotator cuff tear or rupture of right shoulder, not specified as traumatic (principal); M12.811 Other specific arthropathies, not elsewhere classified, right shoulder; M75.21 Bicipital tendinitis, right shoulder | CPT/HCPCS: 99214 ==

== ENCOUNTER 2023-10-20 05:40 | PSDC | payer MEDICARE, BC, SELFPAY ==
[2023-10-20] VITALS (13 sets, daily range): BP systolic 69–129; BP diastolic 27–61; PULSE 67–110; RESP 12–22; TEMP 36–36.7; O2SAT 93–97; BMI 34.5
[2023-10-20] MEDS: Lactated Ringers 1,000 ML 30 ML IV ×2 (06:44→11:40)
--- NOTE | 2023-10-20 07:00 | W.ANESPRE ---
General Info Date of Service Date Performed: 10/20/23 Height: 5 ft 3 in Weight: 88.5 kg Body Mass Index (BMI): 34.5 Surgical Procedure: Operation Date: 10/20/23 07:40 Proposed Procedure Side Surgeon p Shoulder Reverse Total Arthroplasty, Biceps Tenodesis Right Davide Ward MD Meds Allergies and Home Medications Allergies Allergy/AdvReac Type Severity Reaction Status Date / Time insulin detemir Allergy Severe Hives Verified 10/20/23 06:14 [From Levemir U-100 Insulin] codeine Allergy Intermediate Hives Verified 10/20/23 06:14 gemfibrozil [From Lopid] Allergy Intermediate SWOLLEN Verified 10/20/23 06:14 LIPS glipizide Allergy Intermediate Skin Rash Verified 10/20/23 06:14 hydrocodone [From Vicodin] Allergy Intermediate Hives Verified 10/20/23 06:14 sulfadiazine Allergy Intermediate Skin Rash Verified 10/20/23 06:14 acetaminophen [From Vicodin] Allergy Mild Other (See Verified 10/20/23 06:14 Comment) hydromorphone [From Dilaudid] Allergy Mild Hives Verified 10/20/23 06:14 lisinopril AdvReac Mild COUGH Verified 10/20/23 06:14 metformin AdvReac Mild Diarrhea Verified 10/20/23 06:14 simvastatin AdvReac ACHY Verified 10/20/23 06:14 Home Medication Medication Instructions Recorded albuterol sulfate 90 mcg/actuation 2 puff inhalation Q6H PRN 08/21/23 aerosol inhaler (Ventolin HFA) atorvastatin 10 mg tablet 10 mg PO QHS 08/21/23 cyclosporine 0.05 % eye drops in a 1 drp ophthalmic (eye) Q12H 08/21/23 dropperette (Restasis) duloxetine 60 mg capsule,delayed 60 mg PO HS 08/21/23 release ibuprofen 800 mg tablet 800 mg PO TID 08/21/23 insulin glargine 100 unit/mL (3 70 unit subcut QPM 08/21/23 mL) subcutaneous pen (Lantus Solostar U-100 Insulin) losartan 100 mg tablet 100 mg PO HS 08/21/23 metoprolol succinate 50 mg 50 mg PO HS 08/21/23 tablet,extended release 24 hr (Toprol XL) glimepiride 2 mg tablet 2 mg PO DAILY 09/05/23 torsemide 20 mg tablet 20 mg PO HS 09/05/23 levothyroxine 137 mcg tablet 137 mcg PO .QOD 10/17/23 (Synthroid) levothyroxine 150 mcg capsule 150 mcg PO .QOD 10/17/23 montelukast 10 mg tablet 10 mg PO HS 10/20/23 Current Visit Medications: Current Medications Generic Name Dose Route Start Last Admin Trade Name Freq PRN Reason Stop Dose Admin Ringer's Solution 1,000 mls @ 30 mls/hr 10/20/23 06:00 10/20/23 06:44 IV 10/20/23 23:59 30 mls/hr INFUSION VIKTOR Administration Cefazolin Sodium/Dextrose 2 gm in 50 mls @ 100 mls/hr 10/20/23 06:00 Ancef Duplex IVPB 10/20/23 23:59 PREOP VIKTOR Tranexamic Acid/Sodium Chloride 1,000 mg in 100 mls @ 600 mls/hr 10/20/23 06:00 IVPB 10/20/23 23:59 DIRECTED VIKTOR IV Miscellaneous Supplies 1 each 10/20/23 06:00 Iv Access IV 10/20/23 23:59 DIRECTED VIKTOR Sodium Chloride 0 ml 10/20/23 06:00 Normal Saline Flush 10 Ml Syr IV 10/20/23 23:59 PRN PRN Sodium Chloride 0 ml 10/20/23 06:00 Normal Saline 10 Ml Vial IJ 10/20/23 23:59 DIRECTED PRN Sterile Water 0 ml 10/20/23 06:00 Water,Injection,Sterile 10 Ml Vial IJ 10/20/23 23:59 DIRECTED PRN PFSH Active Problems Active Problems: Problem Status Onset Code Tendonitis of long head of biceps brachii of right shoulder M75.21 Rotator cuff tear arthropathy of right shoulder M75.101, M12.811 Rotator cuff tear, right ~07/30/23 M75.101 Tobacco dependence F17.200 Polymyalgia rheumatica M35.3 Psoriasis L40.9 Collagenous colitis K52.831 GERD (gastroesophageal reflux disease) K21.9 COPD (chronic obstructive pulmonary disease) J44.9 Essential hypertension I10 AYLA (obstructive sleep apnea) G47.33 Nicotine dependence F17.200 Anxiety F41.9 Hyperlipidemia E78.5 Type 2 diabetes mellitus E11.9 Hypothyroidism E03.9 Non-toxic multinodular goiter E04.2 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 states it was just a one time thing, i had it worked up and it ended up being nothing Palpitations Low back pain Gout Non-scarring alopecia Actinic keratosis Nummular eczema Chronic ethmoidal sinusitis Chronic serous otitis media Migraine Medical History Comments:: Unable to lay flat she reports; very uncomfortable' for breathing Surgical History Surgical History History of thyroidectomy History of partial hysterectomy History of cholecystectomy History of appendectomy Tobacco Smoking/Tobacco Use Status: Former Tobacco Use Alcohol Alcohol Intake: never Substance Use Substance use: Never Substance use type: does not use Vital Signs and Lab Results Vital Signs Most Recent Vital Signs in EMR: Most Recent Vital Signs Temp Pulse Resp BP Pulse Ox 36 C L 67 16 123/61 96 10/20/23 06:10 10/20/23 06:10 10/20/23 06:10 10/20/23 06:10 10/20/23 06:10 Lab Results Blood Type / Crossmatch: No Data to Display Complete Blood Count: No Data to Display Complete Metabolic Panel: No Data to Display Liver Function Panel: No Data to Display Coagulation Panel: No Data to Display Cardiac Panel: No Data to Display Arterial Blood Gas: No Data to Display Venous Blood Gas: No Data to Display Pancreas Panel: No Data to Display Thyroid Panel: No Data to Display Infectious Disease: No Data to Display Blood Cultures: No Data to Display Toxicology Panel: No Data to Display Anesthesia Assessment and Plan Anesthesia History Personal History: No History of Anesthesia Complications Family History: No Family History of Anesthesia Complications Exercise Tolerance Exercise Tolerance: Metabolic Equivalents>4 Pertinent Negatives Pertinent Negatives: No Symptoms of GERD and No Major Cardiovascular Symptoms or Complaints Cardiac & Pulmonary Exam Cardiac Exam: Normal S1/S2 Heart Sounds Pulmonary Exam: Clear Bilateral Breath Sounds Implantable Cardiac Device Does patient have a Pacemaker or an ICD?: No Airway Exam Known Difficult Airway: No Mallampati Class: 2 Mouth Opening: Normal (> 3cm) Thyromental Distance: Less than 3 cm Neck Range of Motion: Full ROM Neck Circumference: Normal Teeth Condition: Normal Dentition ASA Classification ASA Score: ASA 2 Emergency Case?: No NPO Status NPO Status: NPO Clears >2 hours, Solids >8 hours Anesthesia Plan Resuscitation Status: Full Code Anesthesia Technique: General Anesthesia Airway Planned: Endotracheal Tube Pain Management: Surgeon and patient request nerve block Monitors Used: Standard Monitors
--- NOTE | 2023-10-20 07:08 | PDOC.DSDIS_ITS ---
Date of service: 10/20/23 Time of Service: 11:00 Discharge Plan Disposition Patient Disposition: Home Condition: Stable Discharge Details Attending Provider: Davide Ward Primary Care Provider: Neri Richards Home Meds and New Rx's Prescriptions: New aspirin 81 mg capsule 81 mg PO DAILY 7 Days Qty: 7 0RF naproxen 250 mg tablet 250 - 500 mg PO BID PRN (Reason: moderate pain and swelling) Qty: 30 0RF Rx Instructions: take with a meal tramadol 50 mg tablet 50 mg PO Q8H PRN (Reason: severe pain) Qty: 9 0RF Continued levothyroxine 150 mcg capsule 150 mcg PO .QOD glimepiride 2 mg tablet 2 mg PO DAILY Patient Comments: half tab 1 mg torsemide 20 mg tablet 20 mg PO HS metoprolol succinate [Toprol XL] 50 mg tablet extended release 24 hr 50 mg PO HS atorvastatin 10 mg tablet 10 mg PO QHS duloxetine 60 mg capsule,delayed release(DR/EC) 60 mg PO HS losartan 100 mg tablet 100 mg PO HS albuterol sulfate [Ventolin HFA] 90 mcg/actuation HFA aerosol inhaler 2 puff inhalation Q6H PRN cyclosporine [Restasis] 0.05 % dropperette 1 drp ophthalmic (eye) Q12H insulin glargine [Lantus Solostar U-100 Insulin] 100 unit/mL (3 mL) insulin pen 70 unit subcut QPM levothyroxine [Synthroid] 137 mcg tablet 137 mcg PO .QOD montelukast 10 mg tablet 10 mg PO HS Patient Comments: TAKE 1 TABLET BY MOUTH ONCE DAILY Discontinued ibuprofen 800 mg tablet 800 mg PO TID Discharge Instructions Additional Instructions: Surgery: Right reverse total shoulder arthroplasty (constrained liner) with biceps tenodesis Activity: Do not lift anything heavier than a coffee. You should keep your arm at your side in a relatively neutral position at all times except for gentle range of motion exercises, physical therapy, and essential activities. You should use the sling whenever you are out of the house. You may have to adjust the abduction pillow or remove it for comfort. At home it is best to remove the sling and rest the arm on a pillow at your side or support the operative side with your other hand. A physical therapy prescription will be sent electronically to start in about 3 weeks. Prescriptions: Aspirin 81 mg take 1 daily to prevent a blood clot for 1 weeks, starting tomorro w morning Naproxen 250 mg take 1-2 every 12 hours with a meal as needed for moderate pain Tramadol 50 mg take 1 every 8 hours as needed for severe pain You may use [id number] Tylenol (acetaminophen) as needed for mild pain. These pain medications may be taken all at once or in different combinations as needed. Also, recommend Colace (docusate) as a stool softener as surgery and pain medicine cause constipation. You may try [id number] diphenhydramine (Benadryl) 25-50 mg nightly as a sleep aid Dressings: Leave dressing in place until follow-up. Keep clean and dry at all times. No showers please. Follow-up: 10-[address] Ward You may take off the leg compression stockings this evening at home. You may also leave them on a few days longer if you have a history of leg swelling or edema. Please call the office during business hours with any questions or concerns. Let us know right away if you develop any redness, drainage, fevers, chest pain, or trouble breathing. Do not drink alcohol or drive for at least 24 hours after anesthesia. Discharge Orders Discharge Orders: Discharge Order (Routine); Ordered 10/20/23 Ordered By: Elizabeth Turpin DS: Diagnosis Discharge Diagnosis (1) Rotator cuff tear arthropathy of right shoulder: Status: Acute
[2023-10-20] MEDS: ceFAZolin 2 GM/50 ML BAG IVPB (07:48)
[2023-10-20] MEDS: TRANEXAMIC ACID/SOD. CHL. 1,000 MG/100 ML BAG 600 MG IVPB (07:53)
--- NOTE | 2023-10-20 08:19 | W.ANESNERVE ---
Nerve Block Single Injection Procedure Date and Time Date Performed: 10/20/23 Procedure Start: 07:20 Location Where Procedure Performed Procedure Location: Day Surgery Unit Reason Performed: Postoperative Analgesia Requesting Provider: Davide Ward Timeout Performed Timeout Performed: Yes Monitoring Used ECG, Blood Pressure, SpO2 and See EMR for corresponding vital signs Sterility Sterility: Hand Hygiene, Surgical Cap, Surgical Mask, Sterile Gloves, Sterile Drape/Sheet and Chlorhexidine Sedation Given During Procedure Sedation Given (Indicate Dose Given): Versed IV Dose:: 1mg Patient Mental Status Patient Mental Status: Awake Nerve Block 1st Nerve Block: Laterality: Right Block Type: Interscalene Ultrasound Image Saved?: Yes Needle / Catheter Used: 80mm SonoPlex II Local Anesthetic Bolus (Indicate Dose Given): Lidocaine used for local infiltration of skin, Injected in 3-5ml increments after negative blood aspiration, Bupivacaine 0.5% Dose:: 10ml and Exparel Dose:: 10ml Additives (Indicate Dose Given): None Ultrasound: Sterile probe cover and gel used Nerve Stimulator: Supplement to Ultrasound use and No twitch or parasthesia noted < 0.5 mA Paresthesia: None Procedure Tolerated: No Complications and Patient tolerated well Procedure Outcome: Successful Procedure Comment: Uneventful block Performed By: Pepe Weller
--- NOTE | 2023-10-20 09:49 | ROE_ITS ---
Date of service: 10/20/23 Time of Service: 07:30 Operative Note Operative Note DATE OF PROCEDURE: 10/20/23 PRE-OP DIAGNOSIS: Right: 1. Rotator cuff arthropathy 2. Long head of the biceps tendinopathy POST-OP DIAGNOSIS: same PROCEDURE: Right: 1. Reverse total shoulder arthroplasty, CPT # [address] 2. Open biceps tenodesis, CPT # 71624 The assistant hall director was medically required as this procedure involves retraction, protection of neurovascular structures, and manipulation of multiple instruments and implants at the same time, which cannot be done without a skilled assistant hall director. SURGEON: Davide Ward PATCH MACHINE OPERATOR: Elizabeth Turpin ANESTHESIA TYPE: Local By Surgeon, General LMA/ETT and Primary Nerve Block Refer to Anesthesia Record ESTIMATED BLOOD LOSS: 75 COMPLICATIONS: None Patient was transported to: PACU Patient's condition: stable Implants: [employer] modular glenoid system baseplate 24 mm 10 degree full wedge augment [employer] modular glenoid system central post 20 mm [employer] modular glenoid system peripheral locking screws 28 mm inferior, 32 mm superior, 16 mm posterior, 16 mm anterior [employer] modular glenoid system glenosphere 36 +4 mm lateralized [employer] humeral stem 135 degrees size 6 [employer] suture cup size 36 neutral offset [employer] humeral insert size 36+6 mm CONSTRAINED Indications: Please see complete medical record for details. Findings: Significant long head biceps tenosynovitis and partial tearing medially displaced over the lesser tuberosity, largely devoid chronic rotator cuff tearing with significant bursitis absent majority subscapularis and supraspinatus infraspinatus. Procedure Description: In the operating room, general anesthesia was induced. The patient was positioned beachchair on the operating room table. All bony prominences were well-padded. Preoperative antibiotics were administered. The shoulder was prepped and draped in the usual sterile fashion for shoulder arthroplasty. The correct patient, procedure, and side of the procedure were all verified prior to incision. The deltopectoral approach was preinjected with 0.25% bupivacaine containing epinephrine and taken to the anterior shoulder. Care was taken to bluntly dissect the interval between the deltoid and pectoralis major muscles and to identify the cephalic vein within its fat stripe. The the vein was mobilized laterally, but there were multiple small branches instead of 1 large segment and a few of the smaller ones had to be coagulated. Subdeltoid space and conjoined tendon were freed of adhesions and bursitis removed. The long head of the biceps tendon was identified actually dislocated position medial to the lesser tuberosity. The uppermost margin of the pectoralis major tendon was released from the proximal humerus. The long head of the biceps tendon secured with suture tape and withdrawn inferiorly for later repair. The biceps tendon was amputated and followed proximally open the rotator interval and shoulder. Bursitis was removed exposing an essentially bald greater and lesser tuberosity. The subscapularis remnant was removed and tenotomy performed on bringing the arm gently into external rotation and adduction. Appropriate coagulation was achieved especially interiorly. The anatomic neck was cut using an oscillating saw with the humeral head bone brought back table in case there was a need for future bone grafting. The proximal humerus was delivered from the wound with adduction and external rotation. The proximal humeral protection plate was used to provisionally confirm suture cup and glenosphere size. Reamers were started appropriately posterior to the bicipital groove taking care to maintain in line approach with the humeral canal. Sequential reaming was done from size 5 up to size 7. Next, the broaches were sequentially used to open the proximal humerus starting with a size 5 and tempting size 7, but the 6 was sunk to the appropriate depth while maintaining approximately 25 degrees retroversion. There was good metaphyseal fit and rotational control of the proximal humerus with this size. The neutral offset guide was used to ream for the suture cup. Attention was then turned to the glenoid and retractors were placed and a circumferential release performed using the long head of the biceps remnant to remove soft tissue about the glenoid rim. Care was taken inferiorly to work on bone only between 5 and 7:00 o'clock and bluntly elevate tissues inferiorly. The VIP guide was placed on the glenoid and used to confirm placement and trajectory of the central guidepin. The guidepin was inserted and advanced just through the far cortex ensuring adequate central fixation length. The glenoid was prepared according to printing equipment mechanic apprentice specifications for a augmented baseplate and central post. The baseplate was impacted onto the glenoid surface. The locking guide was then used to drill and place appropriately lengthed inferior, superior, anterior, and posterior screws. The [id number] reamer was used to confirm adequate peripheral reaming. The glenosphere was applied with the roustabout crew leader and then impacted to engage the Randhawa taper. It was then locked with appropriate countersinking of the setscrew. The glenosphere was inspected and found to have good fit, appropriate positioning, and no soft tissue or bony impingement. Attention was then turned back to the proximal humerus. The humeral trial cup was connected. Trialing was commenced with +3 mm liner. The shoulder was reduced and taken through range of motion. Trial components were built up to +6 mm liner to achieve good stability and appropriate tension on the deltoid and conjoined tension. The trial components were removed from the proximal humerus. The wound was copiously irrigated with normal saline. The the proximal humeral stem and suture cup were assembled and brought over the proximal humerus. A small amount of vancomycin powder was distributed in the proximal humerus. The humeral component and suture cup were impacted into place. The final liner, constrained chosen due to lack of rotator cuff for stability, was then connected, and range of motion, stability, and tension confirmed. The shoulder was copiously irrigated with Betadine and normal saline. Vancomycin powder was distributed deeply about the shoulder and through subcutaneous tissues. The biceps tendon remnant was then repaired to the suture cup leaving it at the appropriate level and tension at the superior aspect of the bicipital groove. The rotator interval was reapproximated using 2-0 Monocryl buried interrupted. There was a slow ooze of blood from some of the cut surfaces of the bone, but hemostasis was made as good as possible and appropriate for closure without drain. Subcutaneous tissue was irrigated then closed using 2-0 Monocryl in a buried interrupted fashion. Skin was closed using 3-0 Monocryl in a buried subcuticular fashion. Skin glue was applied to the incision. A silver impregnated bandage was placed over the incision. The extremity was placed into a shoulder immobilizer. The patient awoke from anesthesia without complication and was taken to the recovery room in stable condition.
[2023-10-20] MEDS: ePHEDrine 25 MG/5 ML Syringe IVP ×2 (10:50→11:01)
--- NOTE | 2023-10-20 11:30 | DI.RAD_ITS ---
Exam(s) XR SHOULDER RT COMPLETE 2+V EXAM: XR SHOULDER RT COMPLETE 2+V CLINICAL HISTORY: shoulder arthritis. TECHNIQUE: 2D digital imaging was performed. COMPARISON: CR XR SHOULDER MIN 2V RT from 07/14/2023 FINDINGS: 3 views Postop images reveal satisfactory position alignment of the components of the reverse prosthesis. No fracture or loosening evident. IMPRESSION: Satisfactory postop appearance of right shoulder reverse prosthesis. DATA REPOSITORY: RADIATION DOSE DELIVERED:
[2023-10-20] MEDS: ceFAZolin 1 GM/50 ML BAG IVPB (11:34)
--- NOTE | 2023-10-20 13:55 | W.ANESPOSTOP ---
Postoperative Evaluation Date, Time and Location Date Performed: 10/20/23 Time Performed: 12:15 Patient Location: Day Surgery Unit Vital Signs Most Recent Imported Vital Signs: Most Recent Vital Signs Temp Pulse Resp BP Pulse Ox 36 C L 94 H 17 110/48 L 97 10/20/23 13:03 10/20/23 13:03 10/20/23 13:03 10/20/23 13:03 10/20/23 13:03 Pain Score Most Recent Pain Score: Most Recent Pain Score Pain Level 0 10/20/23 13:03 Assessment Mental Status: Awake (Alert & Oriented to Patient Baseline) Airway and Respiratory Function: Patent airway with normal (patient baseline) respiratory exam Cardiovascular Function: Hemodynamically Stable Hydration Status: Adequately Hydrated Nausea & Vomiting: No Nausea or Vomiting Pain: Pt. Denies Any Pain Peripheral Nerve Block: Regional nerve block not resolved at time of post operative discharge
== END 2023-10-20 15:20 | disposition home or self-care (01) ==
PROVIDERS: PCP Internal Medicine; Visit Provider Student in an Organized Health Care Education/Training Program
PROC: (CPT 23472; principal; 2023-10-20 07:30)
DX: M75.101 Unspecified rotator cuff tear or rupture of right shoulder, not specified as traumatic (principal); M12.811 Other specific arthropathies, not elsewhere classified, right shoulder
CPT/HCPCS: C1713; 23430; 23472; 76942; 73030; C9290; J0665; J0690; J1100; J1885; J2001; J2250; J2371; J2405; J2704; J3010; J3370

== ENCOUNTER 2023-10-24 15:56 | Outpatient (CLI) | payer MEDICARE, BC, SELFPAY ==
--- NOTE | 2023-10-24 14:00 | DI.RAD_ITS ---
Exam(s) XR SHOULDER RT COMPLETE 2+V EXAM: XR SHOULDER RT COMPLETE 2+V INDICATION: F/U RIGHT RTSA. COMPARISON: CR XR SHOULDER RT COMPLETE 2+V from 10/20/2023 TECHNIQUE: 2D digital imaging was performed. Two views. FINDINGS: There has been no change in the alignment of the reverse shoulder prosthesis. There is residual post surgical air in the soft tissues. DATA REPOSITORY: RADIATION DOSE DELIVERED:
== END 2023-10-24 15:57 | disposition home or self-care (01) ==
LOC: DIORS 15:56
PROVIDERS: PCP Internal Medicine; Visit Provider Student in an Organized Health Care Education/Training Program
DX: M12.811 Other specific arthropathies, not elsewhere classified, right shoulder; Z47.1 Aftercare following joint replacement surgery; Z96.611 Presence of right artificial shoulder joint
CPT/HCPCS: 73030

== ENCOUNTER → 2023-10-31 15:16 | Outpatient (BNVA) | payer MEDICARE, BC, SELFPAY | PROVIDERS: PCP Internal Medicine; Referring Provider Internal Medicine; Visit Provider Student in an Organized Health Care Education/Training Program | DX: Z47.1 Aftercare following joint replacement surgery (principal); Z96.611 Presence of right artificial shoulder joint ==

== ENCOUNTER → 2024-01-02 12:57 | Outpatient (BNVA) | payer MEDICARE, BC, SELFPAY | PROVIDERS: PCP Internal Medicine; Referring Provider Internal Medicine; Visit Provider Student in an Organized Health Care Education/Training Program | DX: Z47.1 Aftercare following joint replacement surgery (principal); Z96.611 Presence of right artificial shoulder joint ==

== ENCOUNTER 2024-03-05 15:45 | Outpatient (CLI) | payer MEDICARE, BC, SELFPAY ==
--- NOTE | 2024-03-05 12:45 | DI.RAD_ITS ---
Exam(s) XR SHOULDER RT COMPLETE 2+V EXAM: XR SHOULDER RT COMPLETE 2+V CLINICAL HISTORY: F/U RIGHT RTSA. TECHNIQUE: 2D digital imaging was performed. Three images were obtained. Grashey and Y views were o btained. COMPARISON: CR XR SHOULDER RT COMPLETE 2+V from 10/24/2023 FINDINGS: BONES: There are stable post operative changes of a right total reverse shoulder replacement present. No fracture or dislocation. JOINTS: The orthopedic hardware is in good position. No evidence of hardware loosening. SOFT TISSUE: Normal. IMPRESSION: Stable right total reverse shoulder replacement. DATA REPOSITORY: RADIATION DOSE DELIVERED:
== END 2024-03-05 15:46 | disposition home or self-care (01) ==
LOC: DIORS 15:45
PROVIDERS: PCP Internal Medicine; Referring Provider Internal Medicine; Visit Provider Student in an Organized Health Care Education/Training Program
DX: Z47.1 Aftercare following joint replacement surgery; Z96.611 Presence of right artificial shoulder joint
CPT/HCPCS: 99213; 73030

== ENCOUNTER 2024-04-18 16:20 | Outpatient (REF) | payer MEDICARE, BC, SELFPAY ==
[2024-04-18 19:53] LABS: HCT 37.8 % (36.0-46.0); MCH 31.4 pg (27.0-33.0); MCHC 31.7 % (32.0-36.0); MCV 99 fL (80-95); MPV 9.4 fL (8.0-11.0); Platelet Count 163 10^3/uL (130-400); RBC 3.82 10^6/uL (3.93-5.22); RDW 16.5 % (11.7-14.6); RDW-SD 59.3 fL; WBC 8.35 10^3/uL (4.4-10.8)
[2024-04-18 19:59] LABS: ALT 28 U/L (14-59); Anion Gap 9.7 mmol/L (3-11); BUN 18 mg/dL (7-18); CO2 26.3 mmol/L (21.0-32.0); CREATININE 1.1 mg/dL (0.55-1.02); Calcium 8.9 mg/dL (8.5-10.1); Calculated LDL 14 mg/dL (<100); Chloride 103 mmol/L (98-107); Cholesterol 116 mg/dL (<200); Glucose 150 mg/dL (74-106); HDL Cholesterol 37 mg/dL (40-60); Potassium 4.7 mmol/L (3.5-5.1); Sodium 139 mmol/L (136-145); Triglyceride 325 mg/dL (<150)
[2024-04-18 20:15] LABS: COMMENT (LAB VIEW ONLY) 56.86 mg/dL; Microalb ug/mg Crea 17.6 ug/mg Cr
[2024-04-18 20:45] LABS: C-Reactive Protein 1.72 mg/dL (<or=0.5); Creatine Kinase 66 U/L (26-192)
== END 2024-04-18 16:21 | disposition home or self-care (01) ==
LOC: NCHCN 16:20
PROVIDERS: PCP Internal Medicine; Visit Provider Internal Medicine
DX: E78.5 Hyperlipidemia, unspecified (principal); M00.9 Pyogenic arthritis, unspecified
CPT/HCPCS: 80048; 80061; 82550; 85027; 82043; 82570; 84460; 86140

== ENCOUNTER 2024-06-03 15:47 | Outpatient (CLI) | payer MEDICARE, BC, SELFPAY ==
--- NOTE | 2024-06-03 10:00 | DI.RAD_ITS ---
Exam(s) XR KNEE RT 3V AP,LAT,ADRI EXAM: XR KNEE RT 3V AP,LAT,ADRI CLINICAL HISTORY: eval worsening R knee pain, s/p infection. TECHNIQUE: 2D digital imaging was performed. Three views. COMPARISON: CR XR KNEE COMPLETE MIN 4V RT from 01/13/2024 FINDINGS: BONES: No acute fracture is present. No bony destructive lesion is seen. JOINTS: Moderate to severe narrowing of the left medial femoral tibial joint space which appears to h ave worsened from the previous exam. Mild varus angulation at the knee. Periarticular spurring note d throughout. Patellofemoral joint also appears narrowed. A small joint effusion is seen. SOFT TISSUE: Mild vascular calcifications. IMPRESSION: Advanced degenerative changes of the medial femoral tibial joint. DATA REPOSITORY: RADIATION DOSE DELIVERED:
== END 2024-06-03 15:48 | disposition home or self-care (01) ==
LOC: DIORS 15:48
PROVIDERS: PCP Internal Medicine; Referring Provider Internal Medicine; Visit Provider Student in an Organized Health Care Education/Training Program
DX: M00.9 Pyogenic arthritis, unspecified (principal)
CPT/HCPCS: 20610; 73562; J1010

== ENCOUNTER → 2024-08-19 09:38 | Outpatient (BNVA) | payer MEDICARE, BC, SELFPAY | PROVIDERS: PCP Internal Medicine; Referring Provider Internal Medicine; Visit Provider Student in an Organized Health Care Education/Training Program | DX: M00.861 Arthritis due to other bacteria, right knee (principal) | CPT/HCPCS: 99214 ==

== ENCOUNTER 2024-10-16 14:56 | Outpatient (CLI) | payer MEDICARE, BC, SELFPAY ==
--- NOTE | 2024-10-16 13:00 | DI.RAD_ITS ---
Exam(s) XR SHOULDER RT COMPLETE 2+V EXAM: XR SHOULDER RT COMPLETE 2+V CLINICAL HISTORY: F/U RIGHT RTSA. TECHNIQUE: 2D digital imaging was performed. Three images were obtained. Axillary, Grashey and Y vi ews were obtained. COMPARISON: CR XR SHOULDER RT COMPLETE 2+V from 03/05/2024 FINDINGS: BONES: There are stable post operative changes of a right reverse total shoulder arthroplasty present . No fracture or dislocation. JOINTS: The orthopedic hardware is in good position. No evidence of hardware loosening. Degenerativ e changes are seen at the acromioclavicular joint. SOFT TISSUE: Normal. IMPRESSION: Stable right reversed total shoulder arthroplasty. DATA REPOSITORY: RADIATION DOSE DELIVERED:
== END 2024-10-16 14:57 | disposition home or self-care (01) ==
LOC: DIORS 14:57
PROVIDERS: PCP Internal Medicine; Referring Provider Internal Medicine; Visit Provider Student in an Organized Health Care Education/Training Program
DX: M75.101 Unspecified rotator cuff tear or rupture of right shoulder, not specified as traumatic (principal); M12.811 Other specific arthropathies, not elsewhere classified, right shoulder
CPT/HCPCS: 99213; 73030

== ENCOUNTER 2024-11-06 03:28 | Outpatient (CLI) | payer MEDICARE, BC, SELFPAY ==
[2024-11-06 11:05] LABS: HCT 32.9 % (36.0-46.0); HGB 10.5 g/dL (11.2-15.7); MCH 29.9 pg (27.0-33.0); MCHC 31.9 % (32.0-36.0); MCV 94 fL (80-95); MPV 8.9 fL (8.0-11.0); Platelet Count 109 10^3/uL (130-400); RBC 3.51 10^6/uL (3.93-5.22); RDW 16.8 % (11.7-14.6); RDW-SD 57.1 fL; WBC 5.65 10^3/uL (4.4-10.8)
[2024-11-06 12:15] LABS: Anion Gap 7.5 mmol/L (3-11); BUN 16 mg/dL (7-18); CO2 26.5 mmol/L (21.0-32.0); CREATININE 1.1 mg/dL (0.55-1.02); Calcium 8.9 mg/dL (8.5-10.1); Chloride 107 mmol/L (98-107); Estimated GFR 52.08 (mL/min/1.73m2); Glucose 122 mg/dL (74-106); Sodium 141 mmol/L (136-145)
[2024-11-09 13:26] LABS: Fructosamine 236 mcmol/L (200 - 285)
== END 2024-11-06 03:29 | disposition home or self-care (01) ==
LOC: LBO 03:28
PROVIDERS: PCP Internal Medicine; Visit Provider Student in an Organized Health Care Education/Training Program
DX: M17.11 Unilateral primary osteoarthritis, right knee (principal); E11.9 Type 2 diabetes mellitus without complications; Z01.818 Encounter for other preprocedural examination
CPT/HCPCS: 36415; 80048; 85027; 99024; 82985

== ENCOUNTER 2024-11-06 10:12 | Outpatient (CLI) | payer MEDICARE, BC, SELFPAY ==
--- NOTE | 2024-11-06 09:30 | DI.RAD_ITS ---
Exam(s) XR STANDING ALIGNMENT EXAM: XR STANDING ALIGNMENT CLINICAL HISTORY: PRE OP R TKA. TECHNIQUE: 2D digital imaging was performed. Four images were obtained. COMPARISON: CR XR KNEE COMPLETE MIN 4V RT from 01/13/2024 CR XR KNEE RT 3V AP,LAT,ADRI from 06/03/2024 FINDINGS: BONES: The hips are well maintained. In the right knee, there is marked narrowing of the medial femo ral tibial joint. Osteophytes are seen both medially and laterally. In the left knee, there is mild joint space narrowing. The ankles are well maintained.There is no significant leg length discrepanc y. SOFT TISSUE: There are findings suggestive of hepatic splenomegaly. Follow-up as clinically appropri ate. Vascular calcifications are present. IMPRESSION: Marked degenerative changes in the right knee particularly the medial femoral tibial joint. Unexpected findings DATA REPOSITORY: RADIATION DOSE DELIVERED:
== END 2024-11-06 10:13 | disposition home or self-care (01) ==
LOC: DIORS 10:13
PROVIDERS: PCP Internal Medicine; Visit Provider Physician Assistant
DX: Z01.818 Encounter for other preprocedural examination; M17.11 Unilateral primary osteoarthritis, right knee
CPT/HCPCS: 36415; 80048; 85027; 99024; 77073; 82985

== ENCOUNTER 2024-11-19 09:43 | Day surgery (SDC) | payer MEDICARE, BC, SELFPAY ==
[2024-11-19] VITALS (24 sets, daily range): BP systolic 77–138; BP diastolic 29–85; PULSE 62–90; RESP 11–22; TEMP 36.1–36.7; O2SAT 88–99; BMI 36.1
--- NOTE | 2024-11-19 07:34 | W.PM.DSUDISC ---
Date of service: 11/19/24 Discharge Plan Disposition Patient Disposition: Home Condition: Improving Discharge Details Reason For Visit: Right Knee Replacement Attending Provider: Sergo Cabezas Primary Care Provider: Neri Richards Home Meds and New Rx's Prescriptions: New acetaminophen 500 mg tablet 1,000 mg PO Q8H PRN (Reason: pain) Qty: 90 3RF aspirin 81 mg tablet,delayed release (DR/EC) 81 mg PO BID Qty: 60 0RF cefadroxil 500 mg capsule 500 mg PO BID Qty: 14 0RF docusate sodium [Colace] 100 mg capsule 100 mg PO BID PRNQty: 10 0RF pantoprazole 40 mg tablet,delayed release (DR/EC) 40 mg PO DAILY Qty: 30 0RF gabapentin 300 mg capsule 300 mg PO QHS Qty: 14 0RF oxycodone 5 mg tablet 5 mg PO Q4H PRNQty: 18 0RF Continued levothyroxine 150 mcg capsule 150 mcg PO .QOD Patient Comments: takes every other day glimepiride 2 mg tablet 2 mg PO DAILY Patient Comments: half tab 1 mg torsemide 20 mg tablet 20 mg PO HS Patient Comments: pt. reports this morning metoprolol succinate [Toprol XL] 50 mg tablet extended release 24 hr 50 mg PO HS Patient Comments: 25 mg morning and night atorvastatin 10 mg tablet 10 mg PO QHS duloxetine 60 mg capsule,delayed release(DR/EC) 60 mg PO HS losartan 100 mg tablet 100 mg PO HS albuterol sulfate [Ventolin HFA] 90 mcg/actuation HFA aerosol inhaler 2 puff inhalation Q6H PRN Patient Comments: had slight cold cyclosporine [Restasis] 0.05 % dropperette 1 drp ophthalmic (eye) Q12H insulin glargine [Lantus Solostar U-100 Insulin] 100 unit/mL (3 mL) insulin pen 80 unit subcut QPM Patient Comments: 60 units levothyroxine [Synthroid] 137 mcg tablet 137 mcg PO .QOD amoxicillin 500 mg capsule 2,000 mg PO ONCE Qty: 4 0RF Rx Instructions: Take antibiotics 60 minutes prior to dental work montelukast 10 mg tablet 10 mg PO HS Patient Comments: TAKE 1 TABLET BY MOUTH ONCE DAILY clonazepam 0.5 mg tablet 0.5 mg PO BID PRN Patient Comments: TAKE 1 TABLET BY MOUTH TWICE DAILY NEEDED FOR ANXIETY bupropion HCl 300 mg tablet extended release 24 hr 300 mg PO DAILY famotidine 40 mg tablet 40 mg PO DAILY Fish Oil-Vit D3 Patient Comments: pt. reports Vit D3 and fish oil separate magnesium 200 mg tablet 200 mg PO DAILY Patient Comments: pt. reports 800 mg multivitamin [Daily Multi-Vitamin] Tablet 1 tab PO DAILY Patient Comments: centrum celecoxib 200 mg capsule 200 mg PO BID PRN (Reason: pain) Qty: 60 1RF Discharge Instructions Additional Instructions: Total Knee Discharge Instructions Activity: The most important activity is to walk and to work on gentle motion (both flexion and extension). You should try to take short walks a few times a day. It is important that when resting you work on keeping the knee straight. Avoid putting a pillow behind the knee as this will encourage flexion. Work on range of motion exercises as provided by Physical Therapy. - Start outpatient physical therapy within 2 weeks. - You should wear the PINO hose on both legs for 2 weeks. You may remove these at night. You may also use any compression sock in place of the PINO hose. - Utilize [employer] to review exercises, see videos on exercises and obtain basic information pertaining to your surgery and your recovery. Dressing: Remove the Basil wrap by 2 days after your surgery and put on the PINO stocking given to you from the hospital. Keep the surgical dressing (underneath the BASIL wrap) in place for at least one week. After the first week it may be removed and replaced with light gauze and tape or nothing. The wound and dressing may get wet after 3 days but avoid soaking the dressing or otherwise it will need to be changed. Many people prefer covering the dressing with cling wrap (saran wrap) to minimize it from getting soaked. If it gets wet, just pat dry. If it starts to peel off then it will need to be changed. Medications: - You should take Tylenol and anti-inflammatory Celebrex as your primary pain control medications. If the Celebrex is too expensive or not covered, please call the office for another alternative (Advil/Ibuprofen or Naproxen/Aleve) - You have been prescribed a stronger pain medication Oxycodone for breakthrough pain, take as needed as prescribed. - You have also been prescribed a stomach acid reduction agent Pantoprozole to help reduce stomach acid and reflux. - You have been prescribed Gabapentin to take at night for restlessness and nerve pain. - You will be taking Aspirin 81mg twice a day for DVT prevention unless instructed otherwise. - You have also been prescribed an antibiotic, Cefadroxil, to take twice a day for a week given your history of infection. - If you have constipation you should take Colace or Miralax (both [id number]). It takes most people 3-4 days to have a bowel movement. Follow-up: 2 weeks If you have any acute concerns or questions, please do not hesitate to contact the office at [phone]. You may contact Dr. Cabezas with any questions after hours through the hospital at [phone] or on his cell phone at [phone]. Referrals: Sergo Cabezas MD [ [facility] STAFF PHYSICIAN] - Equipment/Supplies: Walker Activity:: Activity as Tolerated Remove Dressings/Wound Care:: Do Not Remove Shower/Bathe:: Cover Diet:: Carb Counting Discharge Orders Discharge Orders: Discharge Order (Routine); Ordered 11/19/24 Ordered By: Sergo Cabezas
[2024-11-19] MEDS: Acetaminophen 500 MG TAB 1000 MG PO (10:40)
[2024-11-19] MEDS: Celecoxib 200 MG CAP 400 MG PO (10:41)
[2024-11-19] MEDS: Gabapentin 300 MG CAP PO (10:41)
--- NOTE | 2024-11-19 10:50 | W.ANESPRE ---
General Info Date of Service Date Performed: 11/19/24 Height: 5 ft 2 in Weight: 89.7 kg Body Mass Index (BMI): 36.1 Surgical Procedure: Operation Date: 11/19/24 12:40 Proposed Procedure Side Surgeon p Knee Total Arthroplasty, Cementless CR Right Sergo Cabezas MD Meds Allergies and Home Medications Allergies Allergy/AdvReac Type Severity Reaction Status Date / Time doxycycline Allergy Severe Hives Verified 11/19/24 10:10 insulin detemir (From Allergy Severe Hives Verified 11/19/24 10:09 Levemir U-100 Insulin) codeine Allergy Intermediate Hives Verified 11/19/24 10:09 gemfibrozil (From Lopid) Allergy Intermediate SWOLLEN Verified 11/19/24 10:09 LIPS glipizide Allergy Intermediate Skin Rash Verified 11/19/24 10:09 hydrocodone (From Vicodin) Allergy Intermediate Hives Verified 11/19/24 10:09 sulfadiazine Allergy Intermediate Skin Rash Verified 11/19/24 10:09 hydromorphone (From Dilaudid) Allergy Mild Hives Verified 11/18/24 13:27 lisinopril AdvReac Mild COUGH Verified 11/19/24 10:09 metformin AdvReac Mild Diarrhea Verified 11/19/24 10:09 simvastatin AdvReac ACHY Verified 11/19/24 10:09 Home Medication ?Medication ?Instructions ?Recorded albuterol sulfate 90 mcg/actuation 2 puff inhalation Q6H PRN 08/21/23 aerosol inhaler (Ventolin HFA) atorvastatin 10 mg tablet 10 mg PO QHS 08/21/23 cyclosporine 0.05 % eye drops in a 1 drp ophthalmic (eye) Q12H 08/21/23 dropperette (Restasis) duloxetine 60 mg capsule,delayed 60 mg PO HS 08/21/23 release insulin glargine 100 unit/mL (3 80 unit subcut QPM 08/21/23 mL) subcutaneous pen (Lantus Solostar U-100 Insulin) losartan 100 mg tablet 100 mg PO HS 08/21/23 metoprolol succinate 50 mg 50 mg PO HS 08/21/23 tablet,extended release 24 hr (Toprol XL) glimepiride 2 mg tablet 2 mg PO DAILY 09/05/23 torsemide 20 mg tablet 20 mg PO HS 09/05/23 levothyroxine 137 mcg tablet 137 mcg PO .QOD 10/17/23 (Synthroid) levothyroxine 150 mcg capsule 150 mcg PO .QOD 10/17/23 montelukast 10 mg tablet 10 mg PO HS 10/20/23 amoxicillin 500 mg capsule 2,000 mg (4 x 500 mg) PO ONCE #4 03/06/24 caps celecoxib 200 mg capsule 200 mg PO BID PRN pain #60 caps 06/03/24 bupropion HCl 300 mg 24 hr tablet, 300 mg PO DAILY 11/18/24 extended release clonazepam 0.5 mg tablet 0.5 mg PO BID PRN 11/18/24 Fish Oil-Vit D3 11/19/24 famotidine 40 mg tablet 40 mg PO DAILY 11/19/24 magnesium 200 mg tablet 200 mg PO DAILY 11/19/24 multivitamin (Daily Multi-Vitamin 1 tab PO DAILY 11/19/24 tablet) Current Visit Medications: Current Medications Generic Name Dose Route Start Last Admin Trade Name Freq PRN Reason Stop Dose Admin Acetaminophen 1,000 mg 11/19/24 06:00 11/19/24 10:40 Acetaminophen 500 Mg Tab PO 11/19/24 23:59 1,000 mg PREOP VIKTOR Administration Celecoxib 400 mg 11/19/24 06:00 11/19/24 10:41 Celecoxib 200 Mg Cap PO 11/19/24 23:59 400 mg PREOP VIKTOR Administration Gabapentin 300 mg 11/19/24 06:00 11/19/24 10:41 Gabapentin 300 Mg Cap PO 11/19/24 23:59 300 mg PREOP VIKTOR Administration Ringer's Solution 1,000 mls @ 80 mls/hr 11/19/24 06:00 IV 11/19/24 23:59 INFUSION VIKTOR Cefazolin Sodium/Dextrose 2 gm in 50 mls @ 100 mls/hr 11/19/24 06:00 Ancef Duplex IVPB 11/19/24 23:59 PREOP VIKTOR Tranexamic Acid/Sodium Chloride 1,000 mg in 100 mls @ 600 mls/hr 11/19/24 06:00 IVPB 11/19/24 23:59 DIRECTED VIKTOR Cefazolin Sodium/Dextrose 1 gm in 50 mls @ 100 mls/hr 11/19/24 14:00 Ancef Duplex IVPB 11/20/24 06:29 Q8H VIKTOR IV Miscellaneous Supplies 1 each 11/19/24 06:00 Iv Access IV 11/19/24 23:59 DIRECTED VIKTOR Sodium Chloride 0 ml 11/19/24 06:00 Normal Saline Flush 10 Ml Syr IV 11/19/24 23:59 PRN PRN Sodium Chloride 0 ml 11/19/24 06:00 Normal Saline 10 Ml Vial IJ 11/19/24 23:59 DIRECTED PRN Sterile Water 0 ml 11/19/24 06:00 Water,Injection,Sterile 10 Ml Vial IJ 11/19/24 23:59 DIRECTED PRN Tranexamic Acid 1,300 mg 11/19/24 07:32 Tranexamic Acid 650 Mg Tab PO 12/19/24 07:31 ONCE PRN postoperative PFSH Active Problems Active Problems: Problem Status Onset Code Infective arthritis of right knee Acute M00.9 Septic arthritis of knee, right Acute M00.9 Rotator cuff tear arthropathy of right shoulder Acute M75.101, M12.811 Tobacco dependence Acute F17.200 Polymyalgia rheumatica Acute M35.3 Psoriasis Chronic L40.9 Collagenous colitis Acute K52.831 GERD (gastroesophageal reflux disease) Chronic K21.9 COPD (chronic obstructive pulmonary disease) Chronic J44.9 Essential hypertension Acute I10 AYLA (obstructive sleep apnea) Chronic G47.33 Nicotine dependence Acute F17.200 Anxiety Chronic F41.9 Hyperlipidemia Acute E78.5 Type 2 diabetes mellitus Acute E11.9 Hypothyroidism Chronic E03.9 Non-toxic multinodular goiter Acute E04.2 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 states it was just a one time thing, i had it worked up and it ended up being nothing Palpitations Low back pain Gout Non-scarring alopecia Actinic keratosis Nummular eczema Chronic ethmoidal sinusitis Chronic serous otitis media Migraine Medical History Comments:: Unable to lay flat she reports; very uncomfortable' for breathing Surgical History Surgical History History of thyroidectomy History of partial hysterectomy History of cholecystectomy History of appendectomy Tobacco Smoking/Tobacco Use Status: Current-Occasional Tobacco Type: cigarettes Smoking cigarettes per day: 3 Passive smoking exposure: Yes Alcohol Alcohol Intake: never Substance Use Substance use: Never Substance use type: does not use Vital Signs and Lab Results Vital Signs Most Recent Vital Signs in EMR: Most Recent Vital Signs Temp Pulse Pulse Ox 36.7 C 78 96 11/19/24 10:26 11/19/24 10:26 11/19/24 10:26 Lab Results Blood Type / Crossmatch: No Data to Display Complete Blood Count: White Blood Count 5.65 10^3/uL (4.4-10.8) 11/06/24 10:50 Red Blood Count 3.51 10^6/uL (3.93-5.22) L 11/06/24 10:50 Hemoglobin 10.5 g/dL (11.2-15.7) L 11/06/24 10:50 Hematocrit 32.9 % (36.0-46.0) L 11/06/24 10:50 Platelet Count 109 10^3/uL (130-400) L 11/06/24 10:50 Complete Metabolic Panel: Sodium 141 mmol/L (136-145) 11/06/24 10:50 Potassium 4.0 mmol/L (3.5-5.1) 11/06/24 10:50 Chloride 107 mmol/L (98-107) 11/06/24 10:50 Carbon Dioxide 26.5 mmol/L (21.0-32.0) 11/06/24 10:50 BUN 16 mg/dL (7-18) 11/06/24 10:50 Creatinine 1.1 mg/dL (0.55-1.02) H 11/06/24 10:50 Est GFR (CKD-EPI 2020) 52.08 (mL/min/1.73m2) 11/06/24 10:50 Calcium 8.9 mg/dL (8.5-10.1) 11/06/24 10:50 Glucose 122 mg/dL (74-106) H 11/06/24 10:50 Liver Function Panel: No Data to Display Coagulation Panel: No Data to Display Cardiac Panel: No Data to Display Arterial Blood Gas: No Data to Display Venous Blood Gas: No Data to Display Pancreas Panel: No Data to Display Thyroid Panel: No Data to Display Infectious Disease: No Data to Display Blood Cultures: No Data to Display Toxicology Panel: No Data to Display Anesthesia Assessment and Plan Anesthesia History Personal History: No History of Anesthesia Complications Family History: No Family History of Anesthesia Complications Exercise Tolerance Exercise Tolerance: Metabolic Equivalents>4 Pertinent Negatives Pertinent Negatives: No Symptoms of GERD Cardiac & Pulmonary Exam Cardiac Exam: Normal S1/S2 Heart Sounds Pulmonary Exam: Clear Bilateral Breath Sounds Implantable Cardiac Device Does patient have a Pacemaker or an ICD?: No Airway Exam Known Difficult Airway: No Mallampati Class: 2 Mouth Opening: Normal (> 3cm) Thyromental Distance: Less than 3 cm Neck Range of Motion: Full ROM Neck Circumference: Normal Teeth Condition: Normal Dentition ASA Classification ASA Score: ASA 2 Emergency Case?: No NPO Status NPO Status: NPO Clears >2 hours, Solids >8 hours Anesthesia Plan Resuscitation Status: Full Code Anesthesia Technique: Spinal Anesthesia Airway Planned: Natural Airway Pain Management: Surgeon and patient request nerve block Monitors Used: Standard Monitors
[2024-11-19] MEDS: Lactated Ringers 1,000 ML 80 ML IV (11:05)
--- NOTE | 2024-11-19 11:18 | W.ANESNERVE ---
Nerve Block Single Injection Procedure Date and Time Date Performed: 11/19/24 Procedure Start: 11:09 Location Where Procedure Performed Procedure Location: Day Surgery Unit Reason Performed: Postoperative Analgesia Requesting Provider: Sergo Cabezas Timeout Performed Timeout Performed: Yes Monitoring Used ECG, Blood Pressure, SpO2 and See EMR for corresponding vital signs Sterility Sterility: Hand Hygiene, Surgical Cap, Surgical Mask, Sterile Gloves and Chlorhexidine Sedation Given During Procedure Sedation Given (Indicate Dose Given): No Sedation given Patient Mental Status Patient Mental Status: Awake Nerve Block 1st Nerve Block: Laterality: Right Block Type: Adductor Canal Ultrasound Image Saved?: Yes Needle / Catheter Used: 100mm SonoPlex II Local Anesthetic Bolus (Indicate Dose Given): Lidocaine used for local infiltration of skin, Injected in 3-5ml increments after negative blood aspiration, Bupivacaine 0.25% Dose:: 10ml and Exparel Dose:: 10ml Additives (Indicate Dose Given): None Ultrasound: Sterile probe cover and gel used Nerve Stimulator: Not Used Paresthesia: Right Paresthesia Duration: Transient (into quad, resolved.) Procedure Tolerated: No Complications and Patient tolerated well Procedure Outcome: Successful Performed By: Pepe Weller
[2024-11-19] MEDS: ceFAZolin 2 GM/50 ML BAG IVPB (12:00)
[2024-11-19] MEDS: TRANEXAMIC ACID/SOD. CHL. 1,000 MG/100 ML BAG 600 MG IVPB (12:10)
[2024-11-19] MEDS: Albuterol/Ipratropium 3 ML UPD VIAL (12:45)
--- NOTE | 2024-11-19 13:22 | ROE_ITS ---
Operative Note Operative Note PRE-OP DIAGNOSIS: Right Knee Arthritis POST-OP DIAGNOSIS: same PROCEDURE: Right Total Knee Replacement SURGEON: Sergo Cabezas [employer]UST[employer]YCHOLOGY PROFESSOR: Qian Horne ANESTHESIA TYPE: Spinal Refer to Anesthesia Record ESTIMATED BLOOD LOSS: 100 PATHOLOGY: none sent TOURNIQUET TIME: 0 COMPLICATIONS: None Patient was transported to: PACU Patient's condition: stable Implants: 1. Depuy Attune Cementless Cruciate Retaining Femoral Component, Size 5 2. Depuy Attune Cementless Fixed Bearing Tibial Component, Size 4 3. Depuy Attune 5x6mm CR/FB Poly 4. Depuy Attune Patellar Component, Size 35 Indications: I have seen Oneil in clinic for symptoms of knee arthritis, confirmed with radiographic findings. Oneil has exhausted nonoperative methods and was having significant limitations in daily function and desired better function and less pain. I discussed the technical details of a knee replacement. I explained the risks of the procedure to include, but not limited to, bleeding, infection, pain, stiffness, fracture, damage to nerves and vessels, damage to muscles and tendons, loosening, need for repeat procedure, blood clot and cardiopulmonary demise. Despite these risks, she elected to proceed. Findings: There was a full thickness chondral defect of the medial, distal femur in addition to chondromalacia of the trochlea Procedure Description: Oneil was greeted in the preoperative holding area where the correct side was identified and marked. The consent was reviewed with the patient and signed. The history and physical was updated. All questions were answered. Preoperative medications were administered: Acetaminophen 1000mg, Celebrex 400mg, and Gabapentin 300mg. An adductor canal block was then administered by the anesthesia team in the D[facility]. She was taken back to the operating room. A spinal anesthestic was then administered. The patient was placed into the supine position on the operating room table. Posts were placed for positioning during the procedure. All bony prominences were well padded. Prophylactic antibiotics in the form of Cefazolin were administered. 1g of Tranxemic Acid was given intravenously within 30 minutes of incision. The right leg was then prepped with Chloraprep and draped in a standard fashion with impervious stockinette. A second prep with Chloraprep was performed prior to application of Iodine impregnated skin protection. A timeout to confirm correct identity, side and site, procedure, allergies, anesthesia, and medical concerns was performed. With the knee in some flexion, a midline incision was made overlying the knee. Full thickness skin flaps were raised once the extensor mechanism was encountered. These were raised medially and laterally. Any bleeding was controlled with electrocautery. Once the extensor mechanism was fully exposed, a medial parapatellar arthrotomy was performed in a flexed position. All bleeding from the arthrotomy and the geniculate arteries was coagulated. A medial subperiosteal peel was performed with electrocautery to the midcoronal plane. The fat pad was removed while keeping the patellar tendon protected. The anterior distal femur synovium was removed for later visualization. The ACL and PCL were resected and the anterior horn of the lateral meniscus was transected. The knee was then flexed with the patella everted. Using a step drill, and based on preoperative templating, the femoral canal was entered. This was done with a step drill without any difficulty. The intramedullary distal femoral cut guide was inserted, set to a 5 degree valgus cut and 9mm cut thickness. The distal femoral cut guide was then held in position and pinned. With the soft tissues protected, the distal cut was performed. This was passed over a few times to ensure a planar cut. I then turned attention to the tibia. The extramedullary guide was placed onto the leg. The distal aspect was slid medial to adjust for position of center of ankle and stay in line with shaft of the tibia. Approximately 3-5 degrees of posterior slope was kept in the proximal cutting guide. The center of the guide was aligned with the PCL. The stylus was used to assess cut thickness. The medial side, most involved side, was set for a 6mm cut. This was then held in position and pinned into place with 2 additional pins and a cross pin for stability. The medial and lateral collateral ligaments were protected and the cut was performed. With this completed, it was assessed and noted to be of appropriate dimensions. The guide was removed. A spacer block was inserted and the knee was brought into extension. The 6mm spacer block provided full extension, without hyperextension and with stability of both the medial and lateral collateral ligaments was assessed. The pins from the femur and the tibia were then removed. The distal femur was then sized. The anterior stylus was placed onto the lateral ridge of the anterior femur. This indicated a size 5 femur. The external rotation of the guide was adjusted to 3 degrees to match the epicondylar axis, perpendicular to Joan?s line. The 4-in-1 cutting guide was the placed. The posterior medial femur cut was evaluated and appeared of good thickness. The spacer block was inserted underneath the cutting guide and stability was confirmed in 90 degrees of flexion. An samara wing was used to confirm appropriate position of the anterior cut to avoid notching. This cutting guide was ensured to be flush on the cut surface and then pinned into place with headed pins. While protecting the soft tissues, quad tendon, and collateral ligaments, the anterior and posterior cuts were performed with a saw. The central two pins were removed and the posterior and anterior chamfers were cut next. The notch-cutting guide was placed. This was pinned to lateralize the femoral component as much as possible while keeping it flush on the cut surface. This was then pinned into position. A reciprocating saw was used to make the notch cut. A rasp smoothed the cut surfaces. The medial and lateral menisci were removed. A trial femoral component was then inserted, impacted down to the cut surfaces, and the lug holes were drilled. A provisional trial tibial component was placed and the knee was brought through range of motion. There was noted to be excellent extension and flexion. There was no significant instability. The patella was tracking without thumbs. A size 6mm polyethylene component provided the best range of motion and stability with less than 2mm gapping with medial and lateral stress and full extension without significant hyperextension. The tibial cut surface was fully exposed. The tibia was then sized as a 4. The tibia had been previously marked during trialing to correspond to the center of the tibial component to help with rotation. The trial was aligned to this yancy, approximately rotated to the medial 1/3rd of the tibial tubercle. The trial was pinned into place. The tibia was prepared with a reamer and a keel punch and lug holes. The knee was then brought into extension and the patella was measured as 21mm. Using the patellar clamp and cut guide, this was resected to a flat surface with at least 13mm of thickness remaining. The size 35 patella fit the best. This was oriented and then clamped into position. The lugs were drilled. The trial components were removed. The final components were opened on the back table. The periosteal and capsular tissues, especially posteriorly, around the knee were then systematically injected with a periarticular cocktail consisting of 246mg of Ropivacaine, 0.5mg of Epinephrine, 0.08mg of Clonidine, and 30mg of Ketorolac, diluted to 100cc. On the back table, with the implants opened. The cement was mixed. One batch of high viscosity cement was prepared with vacuum assistance. After the cement was ready a small amount was placed on the cut surface of the patella and the patellar button was clamped into position and held. The cementless knee components were placed. Starting with the tibial component, the tibia was subluxed anteriorly and the lug holes of the component were lined up. The tibia was then impacted with an impactor and mallet until the tibial component was in contact with the tibia. The final polyethylene component was inserted. Then, the femoral component was inserted. The lug holes were aligned and the component was impacted into position. The knee was irrigated with Surgiphor Betadine solution. This was allowed to sit in the knee for 3 minutes and then it was irrigated out with saline. After the cement had finally cured, approximately 15min, the clamp was removed from the patella and the knee was taken through range of motion. The patella was tracking with a no-thumbs technique. The capsule was then reapproximated with a No. 1 Vicryl at multiple locations. The capsule was finally closed with a No. 2 Stratafix, barbed suture. Deep tissues were then reapproximated with 0 Vicryl and 2-0 Vicryl. The skin was closed with a running 3-0 Monocryl in a subcuticular fashion. This was reinforced with skin glue. A Mepilex silver dressing was applied along with a [id number] SMILEY wrap. A CryoCuff was applied. Oneil was transferred to the hospital bed without difficulty an suffering no apparent complication. She has a good prognosis. Physical therapy will start today and without restrictions, weight-bearing as tolerated. Aspirin 81mg BID will be used for DVT prophylaxis. Date of Procedure: 11/19/24
[2024-11-19] MEDS: Tranexamic Acid 650 MG TAB 1300 MG PO (15:23)
--- NOTE | 2024-11-19 16:04 | IN_ITS ---
PT Notes Visit Reasons: Right Knee Replacement Physical Therapy Day Surgery Initial Evaluation Date: 11/19/2024 Referring Doctor: KOTA Guy PT Orders: PT CONSULT: S/P Ortho Surgery Precautions: WBAT on the R LE with AD. Patient Profile/Admitting Diagnosis: Oneil is a 74-year-old female with infective arthritis of the right knee and is status post right total knee arthroplasty on postoperative day 0. PMHX: Medical History Tendonitis of long head of biceps brachii of right shoulder Rotator cuff tear, right (~07/30/23) Rupture of left rotator cuff History of urinary stone Chest pain Per pt. states it was just a one time thing, i had it worked up and it ended up being nothing Palpitations Low back pain Gout Non-scarring alopecia Actinic keratosis Nummular eczema Chronic ethmoidal sinusitis Chronic serous otitis media Migraine Surgical History History of thyroidectomy History of partial hysterectomy History of cholecystectomy History of appendectomy Social History/Home Situation: Lives with in a private home with 2 steps to enter with rails on both sides. Bedroom and bathroom are on the second floor of the house with a flight of steps with a rail on 1 side and a wall on the other side. Equipment Owned/DME: [employer], [employer] Subjective: Reported pain in the right knee at 2/10 subsided with walking. Denied headache, chest pain, and lightheadedness throughout session.. Objective: General Observation: Sitting on bedside recliner. present throughout evaluation. SMILEY wraps to right LE. Cryocuff to right knee. Mental Status: A and O x 4 Pain: 2/10 in the R knee ROM: Right Lower Extremity: Hip flexion WFL. Hip abduction WFL. Knee flexion 10 degrees to 90 degrees. Knee extension -10 degrees. Ankle dorsiflexion WFL. Ankle plantarflexion WFL. Left Lower Extremity: Hip flexion WFL. Hip abduction WFL. Knee flexion WFL. Ankle dorsiflexion WFL. Ankle plantarflexion WFL. Strength: Right Lower Extremity: Hip flexors 4-/5. Hip abductors 4-/5. Knee flexors 3--/5. Knee extensors 3-/5. Ankle dorsiflexors 4-/5. Ankle plantarflexors 4-/5. Left Lower Extremity:Hip flexors 4/5. Hip abductors 4/5. Knee flexors 5/5. Knee extensors 4/5. Ankle dorsiflexors 4/5. Ankle plantarflexors 4/5. Sensation: Intact is dependent light pressure in bilateral lower extremities Bed Mobility/Transfers: Minimal cueing provided for use of B hands as needed for support, movement sequence, AD management, and posture to reduce fall risk and minimize pain report Sit to stand contact-guard assist Stand to sit standby assist with FWW Bed to chair standby assist with FWW Gait: Facilitate safe and correct performance of level surface ambulation covering a distance of 150 feet with reciprocal swing through heel-toe gait pattern requiring standby assist for AD management, limb movement sequence, and posture to minimize pain reported and reduce fall risk. Stairs: Negotiated 3 x 4 inch steps and 2 x 6 inch steps while holding onto rails with step to gait pattern with verbal cueing provided for increased knee flexion on the right during each present. Minimal verbal cueing provided for hand placem ent, limb movement sequence, and posture to minimize pain reported reduce fall risk. Balance: Static Sitting: Normal Dynamic Sitting: Good Static Standing: Fair Dynamic Standing: Fair Special Tests: Mobility Limitations Standardized Measure [facility] AM-PAC 6 clicks Basic Mobility Inpatient Short Form: As everything Raw Score: 21 CMS Score: 29% deficit Informed Consent/Education: Patient instructed in purpose of PT consult. Packet containing TKA exercise protocol has been given to patient. Education and training on initial set of exercises that can be done at home have been completed with patient. Trained patient with correct performance of exercises below to maximize motor control, joint flexibility, soft tissue extensibility of the R knee muscul ature: Access Code: [email or web address] URL: [email or web address] Date: 11/19/2024 Prepared by: Marianne Gutierrez Exercises - Supine Quad Set - 1 x daily - 7 x weekly - 1 sets - 10 reps - 5 hold - Supine Heel Slide - 1 x daily - 7 x weekly - 1 sets - 10 reps - 5 hold - Supine Ankle Pumps - 1 x daily - 7 x weekly - 1 sets - 10 reps - 5 hold - Small Range Straight Leg Raise - 1 x daily - 7 x weekly - 1 sets - 10 reps - 5 hold - Seated March - 1 x daily - 7 x weekly - 1 sets - 10 reps - 5 hold Assessment: Patient requires use of a front wheeled walker for mobility ADL performance to maximize independence and reduce fall risk. Patient presents with clinical signs and symptoms consistent with current/admitting diagnoses that have resulted to mobility limitations, gait instability, generalized weakness, and impairment of motor control as demonstrated by the following impairment level findings: 1. Decreased strength to R knee major muscle groups 2. Impaired standing balance 3. Limitation of joint range of motion in R knee Impairments are contributing to the following functional limitations: 1. Inability to safely ambulate without assistive device 2. Increase completion time for mobility ADL performance 3. Increased fall risk Patient is assessed as a 07308 moderate complexity based on the following: History: 74-year-old male with impairment level findings, functional limitations, and past medical history as indicated above Examination: Demonstrable impairment in strength, balance, and mobility level with underlying impairments and functional limitations as documented above Presentation: Evolving Decision Makin moderate complexity Goals: N/A. PT evaluation and 1-2 treatment sessions only for functional mobility training using recommended AD and for HEP instruction. Plan of Care/Treatment Plan: N/A. PT evaluation and 1-2 treatment session only for functional mobility training using recommended AD and for HEP instruction. DISCHARGE RECOMMENDATIONS: Home when medically cleared by orthopedic surgeon. Recommend outpatient PT services in order to optimize functional mobility outcomes and facilitate return to independent community ambulation without an assistive device. TREATMENT CODE/TIME: 18567 x 20 minutes for 1 unit, 56519 x 10 inutes for 1 unit ([id number]:34). Thank you for the opportunity to participate in the care of this patient. Please sign an return this page within 30 days if you agree with the above POC. Thank you! Physician Signature Date [facility]
--- NOTE | 2024-11-19 16:57 | W.ANESPOSTOP ---
Postoperative Evaluation Date, Time and Location Date Performed: 11/19/24 Time Performed: 16:15 Patient Location: Day Surgery Unit Vital Signs Most Recent Imported Vital Signs: Most Recent Vital Signs Temp Pulse Resp BP Pulse Ox 36.4 C L 77 16 128/61 98 11/19/24 15:03 11/19/24 15:03 11/19/24 15:03 11/19/24 15:03 11/19/24 15:03 Pain Score Most Recent Pain Score: Most Recent Pain Score Pain Level 0 11/19/24 15:03 Assessment Mental Status: Awake (Alert & Oriented to Patient Baseline) Airway and Respiratory Function: Patent airway with normal (patient baseline) respiratory exam Cardiovascular Function: Hemodynamically Stable Hydration Status: Adequately Hydrated Nausea & Vomiting: No Nausea or Vomiting Pain: Pain is tolerable per patient Peripheral Nerve Block: Regional nerve block not resolved at time of post operative discharge
== END 2024-11-19 16:50 | disposition home or self-care (01) ==
PROVIDERS: PCP Internal Medicine; Visit Provider Student in an Organized Health Care Education/Training Program
PROC: (CPT 27447; principal; 2024-11-19 12:30)
DX: M17.11 Unilateral primary osteoarthritis, right knee (principal); G89.18 Other acute postprocedural pain
CPT/HCPCS: 27447; 64447; 97162; 97530; C1776; J0665; J0666; J0690; J1100; J2003; J2250; J2371; J2401; J2405; J2704; J7620

== ENCOUNTER 2024-12-02 11:07 | Outpatient (CLI) | payer MEDICARE, BC, SELFPAY ==
--- NOTE | 2024-12-02 10:45 | DI.RAD_ITS ---
Exam(s) XR KNEE RT 1V XR STANDING ALIGNMENT EXAM: XR STANDING ALIGNMENT and XR knee RT 1 V CLINICAL HISTORY: 1ST POST OP R TKA. TECHNIQUE: 2D digital imaging was performed. Six images were obtained. COMPARISON: CR XR KNEE RT 3V AP,LAT,ADRI from 06/03/2024 CR XR STANDING ALIGNMENT from 11/06/2024 FINDINGS: BONES: The hips are well maintained. Since the prior examination, the patient has undergone a right total knee arthroplasty. The orthopedic hardware is in good position without evidence of loosening. The left knee is well maintained. The ankles are well maintained.There is no significant leg length discrepancy. SOFT TISSUE: Atherosclerotic calcification is present. IMPRESSION: Interval placement of a right total knee arthroplasty. DATA REPOSITORY: RADIATION DOSE DELIVERED:
== END 2024-12-02 11:08 | disposition home or self-care (01) ==
LOC: DIORS 11:07
PROVIDERS: PCP Internal Medicine; Referring Provider Internal Medicine; Visit Provider Student in an Organized Health Care Education/Training Program
DX: Z96.651 Presence of right artificial knee joint (principal); Z47.1 Aftercare following joint replacement surgery; L03.115 Cellulitis of right lower limb
CPT/HCPCS: 99213; 73560; 77073

== ENCOUNTER 2024-12-06 09:48 | Emergency (ER) | payer MEDICARE, BC, SELFPAY ==
[2024-12-06] VITALS (32 sets, daily range): BP systolic 93–169; BP diastolic 20–67; PULSE 70–80; RESP 9–32; TEMP 36.8; O2SAT 82–99
--- NOTE | 2024-12-06 10:11 | ED.GENADUL_ITS ---
Discharge Plan Disposition Patient Disposition: Home Condition: Stable Discharge Details Clinical Impression: L4-L5 disc bulge, Diverticulosis, Lumbar disc disease with radiculopathy Primary Care Provider: Neri Richards ED Provider: Willa Cooney Home Meds and New Rx's Prescriptions: New lidocaine 5 % adhesive patch,medicated 1 patch topical DAILY Qty: 15 0RF Rx Instructions: leave on most painful area for up to 12 hrs prednisone 50 mg tablet 50 mg PO DAILY 5 Days Qty: 5 0RF Rx Instructions: Take 1 tablet daily for the next 5 days Continued levothyroxine 150 mcg capsule 150 mcg PO .QOD Patient Comments: takes every other day oxycodone 5 mg tablet 5 mg PO Q8H MDD 3 abs PRN (Reason: pain) Qty: 15 0RF glimepiride 2 mg tablet 2 mg PO DAILY Patient Comments: half tab 1 mg torsemide 20 mg tablet 20 mg PO HS Patient Comments: pt. reports this morning metoprolol succinate [Toprol XL] 50 mg tablet extended release 24 hr 50 mg PO HS Patient Comments: 25 mg morning and night atorvastatin 10 mg tablet 10 mg PO QHS duloxetine 60 mg capsule,delayed release(DR/EC) 60 mg PO HS losartan 100 mg tablet 100 mg PO HS albuterol sulfate [Ventolin HFA] 90 mcg/actuation HFA aerosol inhaler 2 puff inhalation Q6H PRN Patient Comments: had slight cold cyclosporine [Restasis] 0.05 % dropperette 1 drp ophthalmic (eye) Q12H insulin glargine [Lantus Solostar U-100 Insulin] 100 unit/mL (3 mL) insulin pen 80 unit subcut QPM Patient Comments: 60 units levothyroxine [Synthroid] 137 mcg tablet 137 mcg PO .QOD amoxicillin 500 mg capsule 2,000 mg PO ONCE Qty: 4 0RF Rx Instructions: Take antibiotics 60 minutes prior to dental work oxycodone 10 mg tablet 10 mg PO Q4H MDD 6 tabs PRN (Reason: pain) Qty: 20 0RF cefadroxil 500 mg capsule 500 mg PO BID Qty: 14 0RF montelukast 10 mg tablet 10 mg PO HS Patient Comments: TAKE 1 TABLET BY MOUTH ONCE DAILY clonazepam 0.5 mg tablet 0.5 mg PO BID PRN Patient Comments: TAKE 1 TABLET BY MOUTH TWICE DAILY NEEDED FOR ANXIETY bupropion HCl 300 mg tablet extended release 24 hr 300 mg PO DAILY famotidine 40 mg tablet 40 mg PO DAILY Fish Oil-Vit D3 1 tab PO DIRECTED Patient Comments: pt. reports Vit D3 and fish oil separate magnesium 200 mg tablet 200 mg PO DAILY Patient Comments: pt. reports 800 mg multivitamin [Daily Multi-Vitamin] Tablet 1 tab PO DAILY Patient Comments: centrum acetaminophen 500 mg tablet 1,000 mg PO Q8H PRN (Reason: pain) Qty: 90 3RF aspirin 81 mg tablet,delayed release (DR/EC) 81 mg PO BID Qty: 60 0RF docusate sodium [Colace] 100 mg capsule 100 mg PO BID PRNQty: 10 0RF pantoprazole 40 mg tablet,delayed release (DR/EC) 40 mg PO DAILY Qty: 30 0RF gabapentin 300 mg capsule 300 mg PO QHS Qty: 14 0RF celecoxib 200 mg capsule 200 mg PO BID PRN (Reason: pain) Qty: 60 1RF Discharge Instructions Instructions: Herniated disc, Radiculopathy of the neck and back (including sciatica) Additional Instructions: CT of your abdomen pelvis shows some diverticulosis but no evidence of infection or diverticulitis, no obstruction, no aneurysm. The CT of your lumbar spine does show bulging disc at L4 and L5. This is causing some moderate canal chandrakant nosis which is putting pressure and causing pain radiating down your left leg. Please return to the ER if you have any weakness in your legs, loss of bowel or bladder control, feeling as if you need to urinate or have a bowel movement but cannot, any numbness in your groin or rectal area. Please follow-up with your primary care provider in the next 3 to 5 days discuss a referral to a marketing proposal specialist. I will place a referral for you for pain clinic. Please take the medications as directed the steroid will help decrease the inflammation and the lidocaine patch should help with some pain relief. You may continue to take the oxycodone as previously prescribed if this seems to help. Otherwise you may alternate Tylenol and ibuprofen. Alternate ice and heat. Follow up with primary care provider in 3-5 days. Return to ED sooner if any worsening or concerns. Please take Tylenol or Ibuprofen with food every 4-6 hours as needed for pain and swelling. Thank you for allowing us to care for you today Referrals: Michael Epps DO [OSTEOPATHIC DOCTOR] - 1 week (L4 L5 bulging disc with radiculopathy) Neri Richards [Primary Care Provider] - 3 days Discharge Data Discharge Date/Time-TO BE ENTERED AT DEPARTURE: 12/06/24 13:35 HPI <Willa Cooney NP - Last Filed: 12/06/24 14:47> General Mode of arrival: wheelchair . Date/Time Provider Initiated Documentation: 12/06/24 09:51 . Limitations to Documentation: no limitations . Information obtained by: patient, RN/MD, RN notes reviewed and old records reviewed . HPI Narrative: 74-year-old female with a past medical history of a total right knee replacement approximately 2 and half weeks ago presents to the ER with a chief complaint of generalized abdominal pain, lower back pain nausea. She reports that she has been dealing this for a while. I did receive a call from Dr. Cabezas who has been following up her postop orthopedic complaints of note she was seen couple times within the last week at [facility] emergency department and diagnosed with opioid withdrawal. She has been taking 5 mg of oxycodone every 6 hours and was due to have 1 at 6 AM and did not take this due to her symptoms. She denies any recent falls. She has been ambulatory since her surgery without difficulty per patient report. She does have a small amount of erythema surrounding the incision on her right knee. She reports a loose bowels this morning which was brownish-red in color. She does have a history of cholecystectomy appendectomy and hysterectomy. She appears very uncomfortable and is writhing and moaning in the bed. She is afebrile upon arrival and nontachycardic. Related Data Home Medications ?Medication ?Instructions ?Recorded ?Confirmed albuterol sulfate 90 mcg/actuation 2 puff inhalation Q6H PRN 08/21/23 12/06/24 aerosol inhaler (Ventolin HFA) atorvastatin 10 mg tablet 10 mg PO QHS 08/21/23 12/06/24 cyclosporine 0.05 % eye drops in a 1 drp ophthalmic (eye) Q12H 08/21/23 12/06/24 dropperette (Restasis) duloxetine 60 mg capsule,delayed 60 mg PO HS 08/21/23 12/06/24 release insulin glargine 100 unit/mL (3 80 unit subcut QPM 02/05/24 05/23/25 mL) subcutaneous pen (Lantus Solostar U-100 Insulin) losartan 100 mg tablet 100 mg PO HS 08/21/23 12/06/24 metoprolol succinate 50 mg 50 mg PO HS 08/21/23 12/06/24 tablet,extended release 24 hr (Toprol XL) glimepiride 2 mg tablet 2 mg PO DAILY 09/05/23 12/06/24 torsemide 20 mg tablet 20 mg PO HS 09/05/23 12/06/24 levothyroxine 137 mcg tablet 137 mcg PO .QOD 10/17/23 12/06/24 (Synthroid) levothyroxine 150 mcg capsule 150 mcg PO .QOD 10/17/23 12/06/24 montelukast 10 mg tablet 10 mg PO HS 10/20/23 12/06/24 amoxicillin 500 mg capsule 2,000 mg (4 x 500 mg) PO ONCE #4 03/06/24 12/06/24 caps bupropion HCl 300 mg 24 hr tablet, 300 mg PO DAILY 11/18/24 12/06/24 extended release clonazepam 0.5 mg tablet 0.5 mg PO BID PRN 11/18/24 12/06/24 Fish Oil-Vit D3 1 tab PO DIRECTED 11/19/24 12/06/24 acetaminophen 500 mg tablet 1,000 mg (2 x 500 mg) PO Q8H PRN 11/19/24 12/06/24 pain #90 tabs aspirin 81 mg tablet,delayed 81 mg PO BID #60 tabs 11/19/24 12/06/24 release celecoxib 200 mg capsule 200 mg PO BID PRN pain #60 caps 11/19/24 12/06/24 docusate sodium 100 mg capsule 100 mg PO BID PRN #10 caps 11/19/24 12/06/24 (Colace) famotidine 40 mg tablet 40 mg PO DAILY 11/19/24 12/06/24 gabapentin 300 mg capsule 300 mg PO QHS #14 caps 11/19/24 12/06/24 magnesium 200 mg tablet 200 mg PO DAILY 11/19/24 12/06/24 multivitamin (Daily Multi-Vitamin 1 tab PO DAILY 11/19/24 12/06/24 tablet) pantoprazole 40 mg tablet,delayed 40 mg PO DAILY #30 tabs 11/19/24 12/06/24 release oxycodone 10 mg tablet 10 mg PO Q4H PRN pain #20 tabs 11/30/24 12/06/24 cefadroxil 500 mg capsule 500 mg PO BID #14 caps 12/02/24 12/06/24 oxycodone 5 mg tablet 5 mg PO Q8H PRN pain #15 tabs 12/05/24 12/06/24 lidocaine 5 % topical patch 1 patch topical DAILY #15 ea 12/06/24 prednisone 50 mg tablet 50 mg PO DAILY Inflammation 5 days 12/06/24 #5 tabs Previous Rx's ?Medication ?Instructions ?Recorded amoxicillin 500 mg capsule 2,000 mg (4 x 500 mg) PO ONCE #4 03/06/24 caps acetaminophen 500 mg tablet 1,000 mg (2 x 500 mg) PO Q8H PRN 11/19/24 pain #90 tabs aspirin 81 mg tablet,delayed 81 mg PO BID #60 tabs 11/19/24 release celecoxib 200 mg capsule 200 mg PO BID PRN pain #60 caps 11/19/24 docusate sodium 100 mg capsule 100 mg PO BID PRN #10 caps 11/19/24 (Colace) gabapentin 300 mg capsule 300 mg PO QHS #14 caps 11/19/24 pantoprazole 40 mg tablet,delayed 40 mg PO DAILY #30 tabs 11/19/24 release oxycodone 10 mg tablet 10 mg PO Q4H PRN pain #20 tabs 11/30/24 cefadroxil 500 mg capsule 500 mg PO BID #14 caps 12/02/24 oxycodone 5 mg tablet 5 mg PO Q8H PRN pain #15 tabs 12/05/24 lidocaine 5 % topical patch 1 patch topical DAILY #15 ea 12/06/24 prednisone 50 mg tablet 50 mg PO DAILY Inflammation 5 days 12/06/24 #5 tabs Allergies Allergy/AdvReac Type Severity Reaction Status Date / Time doxycycline Allergy Severe Hives Verified 12/06/24 10:11 insulin detemir (From Allergy Severe Hives Verified 12/06/24 10:11 Levemir U-100 Insulin) codeine Allergy Intermediate Hives Verified 12/06/24 10:11 gemfibrozil (From Lopid) Allergy Intermediate SWOLLEN Verified 12/06/24 10:11 LIPS glipizide Allergy Intermediate Skin Rash Verified 12/06/24 10:11 hydrocodone (From Vicodin) Allergy Intermediate Hives Verified 12/06/24 10:11 sulfadiazine Allergy Intermediate Skin Rash Verified 12/06/24 10:11 hydromorphone (From Dilaudid) Allergy Mild Hives Verified 12/06/24 10:11 lisinopril AdvReac Mild COUGH Verified 12/06/24 10:11 metformin AdvReac Mild Diarrhea Verified 12/06/24 10:11 simvastatin AdvReac ACHY Verified 12/06/24 10:11 General Stated Complaint: GenMedical MICHELLE: 3 Review of Systems <Willa Cooney NP - Last Filed: 12/06/24 14:47> All systems reviewed & are unremarkable except as noted in HPI and below Gastrointestinal Gastrointestinal: Reports abdominal pain, Reports loose stools and Reports nausea Musculoskeletal Musculoskeletal: Reports as per HPI, Reports back pain and Reports radiating pain into limb Exam <Willa Cooney NP - Last Filed: 12/06/24 14:47> Narrative Exam Narrative: Constitutional: Alert and oriented x3. Appears stated age. Obese body habitus. Patient appears very uncomfortable and is moaning and writhing around in bed sitting up and appears very anxious. She is complaining of abdominal pain and left hip pain radiating down to her posterior thigh. Head: Normocephalic, no trauma. Eyes: Pupils PERRL, Red reflex noted, EOM's intact. Eyelids symmetrical without lesions, discharge, or swelling. ENT: Bilateral TM's WNL, External ear normal to inspection, no mastoid TTP, swelling, or erythema, Nasal turbinates WNL, no nasal discharge. Normal dentition, Posterior pharynx WNL, no exudate. Chest: RRR, Normal S1, S2, distal pulses intact. Resp: Lungs clear to auscultation bilaterally, no wheezes, rales, or rhonchi. Abdomen: Soft, non-distended, Normoactive bowel sounds all 4 quads. Tenderness with palpation to the periumbilical area, Musculoskeletal: Moves all 4 extremities without difficulty. Has a healing surgical scar noted to right anterior knee, no significant surrounding erythema or swelling no discharge. Distal CMS intact. Skin: No suspicious rashes or lesions. Capillary refill less than 2 sec. complaining of lower back pain and left hip pain. Neurologic: Cranial nerves II-XII intact. Alert and oriented x 3. Motor: No deficits noted. Sensory: Intact bilaterally all 4 extremities. Hematologic/Lymphatic: No ecchymosis, no lymphadenopathy. Course <Willa Cooney NP - Last Filed: 12/06/24 14:47> Vital Signs Vital signs: Vital Signs Temperature 36.8 C 12/06/24 09:57 Pulse 76 12/06/24 09:57 Respiratory Rate 16 12/06/24 09:57 Blood Pressure 169/67 H 12/06/24 09:57 Pulse Oximetry 99 12/06/24 09:57 Temperature 36.8 C 12/06/24 09:57 Temperature Source Skin 12/06/24 09:57 Pulse 76 12/06/24 09:57 Respiratory Rate 16 12/06/24 09:57 Blood Pressure 169/67 H 12/06/24 09:57 Blood Pressure Position Supine 12/06/24 09:57 Pulse Oximetry 99 12/06/24 09:57 Oxygen Delivery Method Room Air 12/06/24 09:57 Oxygen Flow Rate 0 12/06/24 09:57 Pain Level 7 12/06/24 09:57 Medical Decision Making <Willa Cooney NP - Last Filed: 12/06/24 14:47> 74-year-old female with a past medical history of a total right knee replacement approximately 2 and half weeks ago presents to the ER with a chief complaint of generalized abdominal pain, lower back pain nausea. She reports that she has been dealing this for a while. I did receive a call from Dr. Cabezas who has been following up her postop orthopedic complaints of note she was seen couple times within the last week at [facility] emergency department and diagnosed with opioid withdrawal. She has been taking 5 mg of oxycodone every 6 hours and was due to have 1 at 6 AM and did not take this due to her symptoms. She denies any recent falls. She has been ambulatory since her surgery without difficulty per patient report. She does have a small amount of erythema surrounding the incision on her right knee. She reports a loose bowels this morning which was brownish-red in color. She does have a history of cholecystectomy appendectomy and hysterectomy. She appears very uncomfortable and is writhing and moaning in the bed. She is afebrile upon arrival and nontachycardic. Workup ordered including CBC CMP lipase lactate CTA abdomen pelvis and L-spine CT. Will get x-rays of her knee. 50 mcg of fentanyl IV ordered and 4 of Zofran. Differential diagnosis includes but not limited to ischemic bowel, aneurysm, gastroenteritis, sciatica, UTI, 1057: Informed by staff nurse midwife that patient's abdominal pain has resolved however she is still complaining of left hip pain which radiates down posterior of her left thigh. An additional 5 mg of morphine IV ordered. Lidocaine patch to her left lower lumbar area ordered. No leukocytosis, lactate 1.8 sodium 142 potassium 4.4 BUN 13 creatinine 1.1 GFR is 52 magnesium is high at 2.5 CRP is 2.06 lipase 18 ESR is 21. Patient has returned from CT, does appear much more comfortable, informed by RN that he did place her on 2 L nasal cannula she is at 98% at this time blood pressure is 97/25. CT shows bulging disc at L4-L5, does cause moderate central canal stenosis, diverticulosis no diverticulitis, no obstruction no bowel wall thickening no aneurysm or dissection. There is have a heavily calcified abdominal aorta. Will give lidocaine patches prednisone and instruct on the bulging disc. Will have patient follow-up with PCP regarding the bulging disc and follow-up for marketing proposal specialist. Patient denies any loss of bowel or bladder control at this time denies any saddle anesthesia no concerns for cauda equina at this time. Discussed results with patient and family who verbalized understanding. Patient does report that her pain is much better at this time. She is receiving 500 cc normal saline bolus. Will give 60 mg of prednisone and prescription for lidocaine patches. 1210: Spoke with Dr. Cabezas regarding CT results he would like one of the PAs who is on for orthopedics to come over and take a look at her knee. Will wait on her discharge to recheck her blood pressure and be seen by orthopedics. BP has improved to 114/50 500 cc bolus. PA from [facility] was here at bedside for patient evaluation, no additional treatment deemed necessary at this time. Patient discharged in the care of her family in hemodynamically stable condition, alert and orientated feels much more comfortable than when she first arrived to the emergency department. All her questions were answered to the best of my ability. This text was generated using Tipjoyation system, please disregard any oddities of phrase or misspellings. Medical Records Medical records reviewed: Yes I reviewed the patient's medical records. Imaging Data Radiologic Study: Imaging: CT Scan Radiologist's impression: EXAM: CT ABDOMEN PELVIS CTA CLINICAL HISTORY: Abdominal pain. TECHNIQUE: Imaging Protocol: Axial CT angiography was performed with multi- slice acquisition and multi-planar and/or 3D reconstructions. CONTRAST MATERIAL: Intravenous: Omnipaque 350 Contrast volume:100 ml Oral: no COMPARISON: CT CT LUMBAR SPINE RECONS from 12/06/2024 FINDINGS: Aorta: Heavily calcified. No aneurysm. No dissection. No significant stenosis. Iliac Arteries: No evidence of stenosis. Common Femoral Arteries: No evidence of stenosis. Celiac [place]:No evidence of stenosis. SMA: No evidence of stenosis. Renal Arteries: No evidence of stenosis. There is a single renal artery perfusing each kidney. EMERITA: Patent. Venous structures: Patent. Lung bases:No acute findings. Liver: Normal size. Normal density. No measurable mass. Gallbladder and biliary tract: Cholecystectomy. No biliary dilation. Pancreas: Normal density, no abnormal calcifications or inflammatory process. Spleen: Enlarged at 20 cm in length. Kidneys: Normal size, contour and axis. No obstructive uropathy. Bilateral renal cysts. No suspicious masses seen. No evidence of calculi. Adrenal glands: No masses seen. Bladder: No gross wall thickening. No evidence of calculi. No evidence of mass. Bowel: Diverticulum of the descending duodenum. Diverticulosis of the descending and sigmoid colon. Colon appears somewhat fluid-filled the no obstruction or bowel wall thickening. Peritoneal cavity: No ascites. No focal collection. No mesenteric inflammatory response. Lymph nodes: Within normal limits. Reproductive: Hysterectomy. Soft Tissues:Unremarkable. Bones: No evidence of fracture. Disc spaces are maintained. There is disc bulging eccentric to the left at L4-5. There is ligamentous hypertrophy as well as facet degenerative changes which combine to produce moderate central canal stenosis. There is also bilateral neural foraminal narrowing, greater on the left. Disc bulge and facet degenerative changes are also present at L5-S1. There is no significant central canal stenosis. There is bilateral neural foraminal narrowing. IMPRESSION: No evidence of aneurysm or dissection. No evidence vascular occlusion or significant stenosis. No evidence of active GI bleed. Disc bulging at L4-5 and L5-S1 cause moderate central at L4-5 canal stenosis as well as bilateral lower neural foraminal narrowing at both levels. Lab Data Lab results reviewed: Yes I reviewed the patient's lab results. Labs: Laboratory Tests Range/Units 12/06/24 12/06/24 10:13 10:25 WBC (4.4-10.8) 10^3/uL 10.22 RBC (3.93-5.22) 10^6/uL 3.63 L Hgb (11.2-15.7) g/dL 10.0 L Hct (36.0-46.0) % 34.5 L MCV (80-95) fL 95 MCH (27.0-33.0) pg 27.5 MCHC (32.0-36.0) % 29.0 L RDW (11.7-14.6) % 16.8 H Plt Count (130-400) 10^3/uL 159 MPV (8.0-11.0) fL 8.9 Immature Gran % % 2.0 Neutrophils % % 84.0 Lymphocytes % % 7.9 Monocytes % % 4.2 Eosinophils % % 1.6 Basophils % % 0.3 Nucleated RBC % (0.0-0.3) % 0.0 Absolute Neutrophils (1.2-6.7) 10^3/uL 8.59 H Absolute Lymphocytes (1.2-3.4) 10^3/uL 0.81 L Absolute Monocytes (0.1-0.8) 10^3/uL 0.43 Absolute Eosinophils (0.0-0.7) 10^3/uL 0.16 Absolute Basophils (0.0-0.2) 10^3/uL 0.03 ESR (0-30) mm/hr 21 VBG Lactate (<or=2.0) mmol/L 1.8 Sodium (136-145) mmol/L 142 Potassium (3.5-5.1) mmol/L 4.4 Chloride (98-107) mmol/L 104 Carbon Dioxide (21.0-32.0) mmol/L 28.7 Anion Gap (3-11) mmol/L 9.3 BUN (7-18) mg/dL 13 Creatinine (0.55-1.02) mg/dL 1.1 H Est GFR (CKD-EPI 2020) (mL/min/1.73m2) 52.08 Glucose (74-106) mg/dL 128 H Calcium (8.5-10.1) mg/dL 8.9 Magnesium (1.8-2.4) mg/dL 2.5 H Total Bilirubin (0.2-1.0) mg/dL 0.6 AST (15-37) U/L 14 L ALT (14-59) U/L 19 Alkaline Phosphatase (46-116) U/L 107 C-Reactive Protein (<or=0.5) mg/dL 2.06 H Total Protein (6.4-8.2) g/dL 6.8 Albumin (3.4-5.0) g/dL 3.6 Lipase (<78) U/L 18 Acetaminophen (10-30) ug/mL < 2 Quality:SDOH Health Related Social Needs: No Data to Display <Sandoval Warren MD - Last Filed: 12/07/24 09:10> Date: 12/06/24 Time: 10:30 Note: Patient was seen and evaluated with DANIELA Cooney. I agree with diagnostic workup and treatment plan as discussed and documented above. PFSH <Willa Cooney NP - Last Filed: 12/06/24 14:47> All Active Problems (Updated 12/06/24 @ 11:54 by Willa Cooney NP) Lumbar disc disease with radiculopathy (Acute) Diverticulosis (Acute) L4-L5 disc bulge (Acute) History of total right knee replacement (Acute 11/19/24) Infective arthritis of right knee (Acute) DEPO MEDROL 06/03/24 Rotator cuff tear arthropathy of right shoulder (Acute) Tobacco dependence (Acute) Polymyalgia rheumatica (Acute) Psoriasis (Chronic) Collagenous colitis (Acute) GERD (gastroesophageal reflux disease) (Chronic) COPD (chronic obstructive pulmonary disease) (Chronic) Essential hypertension (Acute) AYLA (obstructive sleep apnea) (Chronic) Nicotine dependence (Acute) Anxiety (Chronic) Hyperlipidemia (Acute) Type 2 diabetes mellitus (Acute) Hypothyroidism (Chronic) Non-toxic multinodular goiter (Acute) 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 states it was just a one time thing, i had it worked up and it ended up being nothing Palpitations Low back pain Gout Non-scarring alopecia Actinic keratosis Nummular eczema Chronic ethmoidal sinusitis Chronic serous otitis media Migraine Surgical History History of thyroidectomy History of partial hysterectomy History of cholecystectomy History of appendectomy Social History Smoking/Tobacco Use Status: Current-Occasional Tobacco Type: cigarettes Smoking risk assessment performed?: Yes Alcohol Intake: never Drug use: Never Substance use type: does not use Housing: house Do you feel safe at home: Yes Do you feel safe in your relationship?: Yes Additional Social history: [employer]
[2024-12-06] MEDS: Ondansetron 4 MG/2 ML VIAL IVP (10:20)
[2024-12-06] MEDS: fentaNYL 100 MCG/2 ML VIAL 50 MCG IVP (10:20)
[2024-12-06 10:22] LABS: Lactate 1.8 mmol/L (<or=2.0)
[2024-12-06 10:24] LABS: Absolute Basophil Count 0.03 10^3/uL (0.0-0.2); Absolute Eosinophil Count 0.16 10^3/uL (0.0-0.7); Absolute Lymphocyte Count 0.81 10^3/uL (1.2-3.4); Absolute Monocyte Count 0.43 10^3/uL (0.1-0.8); Absolute Neutrophil Count 8.59 10^3/uL (1.2-6.7); Basophils % 0.3 %; Eosinophils % 1.6 %; HCT 34.5 % (36.0-46.0); Lymphocytes % 7.9 %; MCH 27.5 pg (27.0-33.0); MCV 95 fL (80-95); MPV 8.9 fL (8.0-11.0); Monocytes % 4.2 %; Platelet Count 159 10^3/uL (130-400); RBC 3.63 10^6/uL (3.93-5.22); RDW 16.8 % (11.7-14.6); RDW-SD 57.9 fL; WBC 10.22 10^3/uL (4.4-10.8)
[2024-12-06 10:27] LABS: ESR 21 mm/hr (0-30)
[2024-12-06] MEDS: MORPHine 4 MG/ML SYR IVP (10:38)
[2024-12-06 10:40] LABS: ALT 19 U/L (14-59); AST 14 U/L (15-37); Albumin 3.6 g/dL (3.4-5.0); Alkaline Phosphatase 107 U/L (46-116); Anion Gap 9.3 mmol/L (3-11); BUN 13 mg/dL (7-18); Bilirubin, Total 0.6 mg/dL (0.2-1.0); C-Reactive Protein 2.06 mg/dL (<or=0.5); CO2 28.7 mmol/L (21.0-32.0); CREATININE 1.1 mg/dL (0.55-1.02); Calcium 8.9 mg/dL (8.5-10.1); Chloride 104 mmol/L (98-107); Estimated GFR 52.08 (mL/min/1.73m2); Glucose 128 mg/dL (74-106); Lipase 18 U/L (<78); Magnesium 2.5 mg/dL (1.8-2.4); Potassium 4.4 mmol/L (3.5-5.1); Sodium 142 mmol/L (136-145); Total Protein 6.8 g/dL (6.4-8.2)
[2024-12-06] MEDS: Lidocaine 5% Patch 1 PATCH TP (10:59)
[2024-12-06 11:00] LABS: Acetaminophen < 2 ug/mL (10-30)
[2024-12-06] MEDS: LORazepam 20 MG/10 ML VIAL IVP (11:12)
[2024-12-06] MEDS: Normal Saline - Diluent 50 ML VIAL IJ (11:19)
[2024-12-06] MEDS: Omnipaque 350 MG/ML 500 ML BTL-Imaging package IJ (11:19)
--- NOTE | 2024-12-06 11:41 | NUR.NOTE ---
pt returned from CT pt no longer moaning and tossing around in bed pt placed on o2 at 2l for lower o2 saturationNursing Note:
--- NOTE | 2024-12-06 11:50 | DI.CT_ITS ---
Exam(s) CT LUMBAR SPINE RECONS CT ABDOMEN PELVIS CTA EXAM: CT ABDOMEN PELVIS CTA CLINICAL HISTORY: Abdominal pain. TECHNIQUE: Imaging Protocol: Axial CT angiography was performed with multi-slice acquisition and m ulti-planar and/or 3D reconstructions. CONTRAST MATERIAL: Intravenous: Omnipaque 350 Contrast volume:100 ml Oral: no COMPARISON: CT CT LUMBAR SPINE RECONS from 12/06/2024 FINDINGS: Aorta: Heavily calcified. No aneurysm. No dissection. No significant stenosis. Iliac Arteries: No evidence of stenosis. Common Femoral Arteries: No evidence of stenosis. Celiac Crawford:No evidence of stenosis. SMA: No evidence of stenosis. Renal Arteries: No evidence of stenosis. There is a single renal artery perfusing each kidney. EMERITA: P atent. Venous structures: Patent. Lung bases:No acute findings. Liver: Normal size. Normal density. No measurable mass. Gallbladder and biliary tract: Cholecystectomy. No biliary dilation. Pancreas: Normal density, no abnormal calcifications or inflammatory process. Spleen: Enlarged at 20 cm in length. Kidneys: Normal size, contour and axis. No obstructive uropathy. Bilateral renal cysts. No suspicio us masses seen. No evidence of calculi. Adrenal glands: No masses seen. Bladder: No gross wall thickening. No evidence of calculi. No evidence of mass. Bowel: Diverticulum of the descending duodenum. Diverticulosis of the descending and sigmoid colon. Colon appears somewhat fluid-filled the no obstruction or bowel wall thickening. Peritoneal cavity: No ascites. No focal collection. No mesenteric inflammatory response. Lymph nodes: Within normal limits. Reproductive: Hysterectomy. Soft Tissues:Unremarkable. Bones: No evidence of fracture. Disc spaces are maintained. There is disc bulging eccentric to the left at L4-5. There is ligamentous hypertrophy as well as facet degenerative changes which combine t o produce moderate central canal stenosis. There is also bilateral neural foraminal narrowing, great er on the left. Disc bulge and facet degenerative changes are also present at L5-S1. There is no si gnificant central canal stenosis. There is bilateral neural foraminal narrowing. IMPRESSION: No evidence of aneurysm or dissection. No evidence vascular occlusion or significant stenosis. No evidence of active GI bleed. Disc bulging at L4-5 and L5-S1 cause moderate central at L4-5 canal stenosis as well as bilateral low er neural foraminal narrowing at both levels. RADIATION DOSE DELIVERED: Total DLP DATA REPOSITORY: All CT scans at this facility are submitted to the National Radiology Data Registry (NRDR) Dose Index Registry (DIR) with the [employer] (A[employer]). RADIATION OPTIMIZATION: All CT scans at this facility use at least one of these dose optimization te chniques: automated exposure control; mA and/or kV adjustment per patient size (includes targeted exa ms where dose is matched to clinical indication); or iterative reconstruction.
[2024-12-06] MEDS: Normal Saline 500 ML IV (11:54)
[2024-12-06] MEDS: predniSONE 20 MG TAB 60 MG PO (12:00)
[2024-12-06 12:27] LABS: Bilirubin Negative (Negative); Blood Negative (Negative); Clarity Sl Cloudy (Clear); Glucose Negative (Negative); Ketones Negative (Negative); Leukocyte Esterase Negative (Negative); Nitrite Negative (Negative); Specific Gravity 1.015 (1.005-1.025); Urobilinogen 0.2 mg/dL (Up to 0.2); pH 8.5 (5-8)
== END 2024-12-06 13:35 | disposition home or self-care (01) ==
PROVIDERS: Student in an Organized Health Care Education/Training Program; Emergency Provider Registered Nurse Emergency; PCP Internal Medicine
DX: R10.84 Generalized abdominal pain (principal); M51.16 Intervertebral disc disorders with radiculopathy, lumbar region; K57.30 Diverticulosis of large intestine without perforation or abscess without bleeding; I10 Essential (primary) hypertension; E78.5 Hyperlipidemia, unspecified; E11.9 Type 2 diabetes mellitus without complications; F17.210 Nicotine dependence, cigarettes, uncomplicated; Z79.82 Long term (current) use of aspirin; Z79.84 Long term (current) use of oral hypoglycemic drugs
CPT/HCPCS: 36415; 80053; 83690; 85652; 96374; 96375; 99285; 74174; 80329; 81003; 83605; 83735; 85025; 86140; J2060; J2270; J2405; J3010; J7512

== ENCOUNTER → 2024-12-30 10:12 | Outpatient (BNVA) | payer MEDICARE, BC, SELFPAY | PROVIDERS: PCP Internal Medicine; Visit Provider Student in an Organized Health Care Education/Training Program | DX: Z47.1 Aftercare following joint replacement surgery (principal); Z96.651 Presence of right artificial knee joint | CPT/HCPCS: 99024 ==

== ENCOUNTER 2025-01-06 15:22 | Outpatient (REF) | payer MEDICARE, BC, SELFPAY ==
[2025-01-07 19:47] LABS: HIV-1/2 Ag & Ab Screen Negative (Negative)
== END 2025-01-06 15:23 | disposition home or self-care (01) ==
LOC: NCHCN 15:22
PROVIDERS: PCP Internal Medicine; Visit Provider Internal Medicine
DX: R16.2 Hepatomegaly with splenomegaly, not elsewhere classified (principal)
CPT/HCPCS: 87389

== ENCOUNTER 2025-01-29 18:24 | Outpatient (REF) | payer MEDICARE, BC, SELFPAY ==
[2025-01-29 22:32] LABS: HCT 35.4 % (36.0-46.0); HGB 10.9 g/dL (11.2-15.7); MCH 28.5 pg (27.0-33.0); MCHC 30.8 % (32.0-36.0); MCV 92 fL (80-95); MPV 9.3 fL (8.0-11.0); Platelet Count 166 10^3/uL (130-400); RBC 3.83 10^6/uL (3.93-5.22); RDW 17.1 % (11.7-14.6); RDW-SD 56.7 fL; WBC 9.98 10^3/uL (4.4-10.8)
[2025-01-29 22:35] LABS: Ferritin 93 ng/mL (8-252); Iron 39 ug/dL (50-170); TSH 4.77 uIU/mL (0.36-3.74); Total Iron Binding Capacity 304 ug/dL (250-450)
== END 2025-01-29 18:25 | disposition home or self-care (01) ==
LOC: NCHCN 18:24
PROVIDERS: PCP Internal Medicine; Visit Provider Internal Medicine
DX: I49.9 Cardiac arrhythmia, unspecified (principal); I10 Essential (primary) hypertension; D64.9 Anemia, unspecified; R16.2 Hepatomegaly with splenomegaly, not elsewhere classified
CPT/HCPCS: 85027; 82728; 83540; 83550; 84443; 85045

== ENCOUNTER → 2025-02-10 10:46 | Outpatient (BNVA) | payer MEDICARE, BC, SELFPAY | PROVIDERS: PCP Internal Medicine; Referring Provider Internal Medicine; Visit Provider Physician Assistant | DX: Z47.1 Aftercare following joint replacement surgery (principal); Z96.651 Presence of right artificial knee joint | CPT/HCPCS: 99024 ==

== ENCOUNTER 2025-04-09 18:45 | Outpatient (REF) | payer MEDICARE, BC, SELFPAY ==
[2025-04-09 20:30] LABS: HCT 35.1 % (36.0-46.0); HGB 11.2 g/dL (11.2-15.7); MCH 29.6 pg (27.0-33.0); MCHC 31.9 % (32.0-36.0); MCV 93 fL (80-95); MPV 9.3 fL (8.0-11.0); Platelet Count 152 10^3/uL (130-400); RBC 3.79 10^6/uL (3.93-5.22); RDW 16.5 % (11.7-14.6); RDW-SD 55.3 fL; WBC 8.31 10^3/uL (4.4-10.8)
[2025-04-09 20:49] LABS: TSH 4.71 uIU/mL (0.36-3.74)
== END 2025-04-09 18:46 | disposition home or self-care (01) ==
LOC: NCHCN 18:45
PROVIDERS: PCP Internal Medicine; Visit Provider Internal Medicine
DX: E03.9 Hypothyroidism, unspecified (principal)
CPT/HCPCS: 85027; 84443

== ENCOUNTER 2025-04-25 06:13 | Day surgery (SDC) | payer MEDICARE, BC, SELFPAY ==
[2025-04-25 06:20] VITALS: BP 117/49; PULSE 71; RESP 17; TEMP 36.2; O2SAT 95
[2025-04-25] MEDS: Tropicam./Phenyleph. (1/2.5%) 5 ML BTL OS ×3 (06:47→07:01)
--- NOTE | 2025-04-25 07:10 | W.ANESPRE ---
General Info Date of Service Date Performed: 04/25/25 Height: 5 ft 2 in Weight: 94.2 kg Body Mass Index (BMI): 38.0 Surgical Procedure: Operation Date: 04/25/25 07:40 Proposed Procedure Side Surgeon p Cataract Extraction with IOL Implant Left Robin Tejada MD Meds Allergies and Home Medications Allergies Allergy/AdvReac Type Severity Reaction Status Date / Time doxycycline Allergy Severe Hives Verified 04/25/25 06:35 insulin detemir (From Allergy Severe Hives Verified 04/25/25 06:35 Levemir U-100 Insulin) codeine Allergy Intermediate Hives Verified 04/25/25 06:35 gemfibrozil (From Lopid) Allergy Intermediate SWOLLEN Verified 04/25/25 06:35 LIPS glipizide Allergy Intermediate Skin Rash Verified 04/25/25 06:35 hydrochlorothiazide (From Allergy Intermediate Unknown Verified 04/25/25 06:35 Dyazide) hydrocodone (From Vicodin) Allergy Intermediate Hives Verified 04/25/25 06:35 sulfadiazine Allergy Intermediate Skin Rash Verified 04/25/25 06:35 triamterene (From Dyazide) Allergy Intermediate Unknown Verified 04/25/25 06:35 hydromorphone (From Dilaudid) Allergy Mild Hives Verified 04/25/25 06:35 lisinopril AdvReac Mild COUGH Verified 04/25/25 06:35 metformin AdvReac Mild Diarrhea Verified 04/25/25 06:35 simvastatin AdvReac ACHY Verified 04/25/25 06:35 Home Medication ?Medication ?Instructions ?Recorded albuterol sulfate 90 mcg/actuation 2 puff inhalation Q6H PRN 08/21/23 aerosol inhaler (Ventolin HFA) atorvastatin 10 mg tablet 10 mg PO QHS 08/21/23 cyclosporine 0.05 % eye drops in a 1 drp ophthalmic (eye) Q12H 08/21/23 dropperette (Restasis) duloxetine 60 mg capsule,delayed 60 mg PO HS 08/21/23 release insulin glargine 100 unit/mL (3 80 unit subcut QPM 08/21/23 mL) subcutaneous pen (Lantus Solostar U-100 Insulin) losartan 100 mg tablet 100 mg PO HS 08/21/23 metoprolol succinate 50 mg 50 mg PO HS 02/05/24 tablet,extended release 24 hr (Toprol XL) glimepiride 2 mg tablet 2 mg PO DAILY 09/05/23 torsemide 20 mg tablet 20 mg PO HS 09/05/23 levothyroxine 137 mcg tablet 137 mcg PO .QOD 10/17/23 (Synthroid) Held on 04/22/25. Instructions: Changed by Provider levothyroxine 150 mcg capsule 150 mcg PO DAILY 10/17/23 montelukast 10 mg tablet 10 mg PO HS 10/20/23 amoxicillin 500 mg capsule 2,000 mg (4 x 500 mg) PO ONCE #4 03/06/24 caps bupropion HCl 300 mg 24 hr tablet, 300 mg PO DAILY 11/18/24 extended release clonazepam 0.5 mg tablet 0.5 mg PO BID PRN 11/18/24 Fish Oil-Vit D3 1 tab PO DIRECTED 11/19/24 acetaminophen 500 mg tablet 1,000 mg (2 x 500 mg) PO Q8H PRN 11/19/24 pain #90 tabs famotidine 40 mg tablet 40 mg PO DAILY 11/19/24 Held on 04/22/25. Instructions: Changed by Provider magnesium 200 mg tablet 200 mg PO DAILY 11/19/24 multivitamin (Daily Multi-Vitamin 1 tab PO DAILY 11/19/24 tablet) cholecalciferol (vitamin D3) PO DAILY 01/21/25 methocarbamol 500 mg tablet 500 mg PO QHS 01/21/25 Held on 04/22/25. Instructions: Changed by Provider montelukast [Singulair] PO 01/21/25 nifedipine 30 mg tablet,extended 30 mg PO DAILY 01/21/25 release Held on 04/22/25. Instructions: Changed by Provider omeprazole 40 mg capsule,delayed 40 mg PO DAILY 01/21/25 release ondansetron HCl 4 mg tablet 4 mg PO Q8H 01/21/25 ascorbic acid (vitamin C) 1,000 mg 1,000 mg PO DAILY 02/10/25 capsule ferrous sulfate 325 mg (65 mg 325 mg PO DAILY 02/10/25 iron) tablet gabapentin 300 mg capsule 300 mg PO BID 02/10/25 lidocaine 5 % topical patch 1 patch topical DAILY PRN 04/22/25 Current Visit Medications: Current Medications Generic Name Dose Route Start Last Admin Trade Name Freq PRN Reason Stop Dose Admin Acetaminophen 1,000 mg 04/25/25 06:00 Acetaminophen 500 Mg Tab PO 05/25/25 05:59 Q4H PRN PRN Balanced Salt Solution 500 ml 04/25/25 06:00 Balanced Salt Soln.-Plus 500 Ml Bag OP 05/25/25 05:59 DIRECTED FOR[facility]LY [facility], [facility] Miscellaneous Medication 0 ml 04/25/25 06:00 Prednisolone 1%, Moxifloxacin 0.5%, Bromfenac 0.09% 5.6ml Btl OS 05/25/25 05:59 DIRECTED VIKTOR Miscellaneous Medication 0 ml 04/25/25 06:00 Tropicam./Phenyleph. (1/2.5%) 5 Ml Btl OS 05/25/25 05:59 DIRECTED VIKTOR Tetracaine HCl 0 ml 04/25/25 06:00 Tetracaine 0.5% 4 Ml Btl OS 05/25/25 05:59 DIRECTED VIKTOR PFSH Active Problems Active Problems: Problem Status Onset Code Cortical age-related cataract, left eye Acute H25.012 Nuclear age-related cataract, left eye Acute H25.12 Rotator cuff tear arthropathy of right shoulder Acute M75.101, M12.811 Tobacco dependence Acute F17.200 Polymyalgia rheumatica Acute M35.3 Psoriasis Chronic L40.9 Collagenous colitis Acute K52.831 GERD (gastroesophageal reflux disease) Chronic K21.9 COPD (chronic obstructive pulmonary disease) Chronic J44.9 Essential hypertension Acute I10 AYLA (obstructive sleep apnea) Chronic G47.33 Nicotine dependence Acute F17.200 Anxiety Chronic F41.9 Hyperlipidemia Acute E78.5 Type 2 diabetes mellitus Acute E11.9 Hypothyroidism Chronic E03.9 Non-toxic multinodular goiter Acute E04.2 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 Acute C44.601 Medical History Medical History Stercoral colitis Pleurisy Tobacco user Stress fracture of right tibia with routine healing Psychophysiologic insomnia Osteoarthritis of knee Idiopathic osteoporosis of forearm History of injury Hepatomegaly GERD without esophagitis Family history of cardiovascular disease Dysphagia Distal radius fracture, right Diarrhea Crystal arthropathy Cough Calcaneal spur Bifascicular block Anemia Allergic rhinitis Acute exacerbation of chronic obstructive airways disease Actinic keratitis Acquired absence of uterus Acquired absence of cervix Tendonitis of long head of biceps brachii of right shoulder Rotator cuff tear, right (~07/30/23) Rupture of left rotator cuff History of urinary stone Chest pain Per pt. states it was just a one time thing, i had it worked up and it ended up being nothing Palpitations Low back pain Gout Non-scarring alopecia Actinic keratosis Nummular eczema Chronic ethmoidal sinusitis Chronic serous otitis media Migraine Medical History Comments:: Upcoming back surgery 05/19. Unable to lay flat she reports; very uncomfortable' for breathing Surgical History Surgical History History of total right knee replacement (11/19/24) S/P rotator cuff repair H/O arthroscopy of knee Hx of colonoscopy 08/14/2023, 02/24/2021 History of thyroidectomy History of partial hysterectomy 1974 History of cholecystectomy 1979 History of appendectomy Tobacco Smoking/Tobacco Use Status: Current every day Tobacco Type: cigarettes Passive smoking exposure: Yes Alcohol Alcohol Intake: former Substance Use Substance use: Never Substance use type: does not use Vital Signs and Lab Results Vital Signs Most Recent Vital Signs in EMR: Most Recent Vital Signs Temp Pulse Resp BP Pulse Ox 36.2 C L 71 17 117/49 L 95 04/25/25 06:20 04/25/25 06:20 04/25/25 06:20 04/25/25 06:20 04/25/25 06:20 Lab Results Complete Blood Count: WBC, (4.4-10.8) 8.31 10^3/uL 04/09/25, 14:25 RBC, (3.93-5.22) 3.79 10^6/uL L 04/09/25, 14:25 Hgb, (11.2-15.7) 11.2 g/dL 04/09/25, 14:25 Hct, (36.0-46.0) 35.1 % L 04/09/25, 14:25 Plt Count, (130-400) 152 10^3/uL 04/09/25, 14:25 Thyroid Panel: TSH, (0.36-3.74) 4.71 uIU/mL H 04/09/25, 14:25 Anesthesia Assessment and Plan Anesthesia History Personal History: No History of Anesthesia Complications Family History: No Family History of Anesthesia Complications Exercise Tolerance Exercise Tolerance: Metabolic Equivalents>4 Pertinent Negatives Pertinent Negatives: No Symptoms of GERD Cardiac & Pulmonary Exam Cardiac Exam: Normal S1/S2 Heart Sounds Pulmonary Exam: Clear Bilateral Breath Sounds Implantable Cardiac Device Does patient have a Pacemaker or an ICD?: No Airway Exam Known Difficult Airway: No Mallampati Class: 2 Mouth Opening: Normal (> 3cm) Thyromental Distance: Less than 3 cm Neck Range of Motion: Full ROM Neck Circumference: Normal Teeth Condition: Normal Dentition ASA Classification ASA Score: ASA 2 Emergency Case?: No NPO Status NPO Status: NPO Clears >2 hours, Solids >8 hours Anesthesia Plan Resuscitation Status: Full Code Anesthesia Technique: MAC Anesthesia Airway Planned: Natural Airway Pain Management: Surgeon and patient request nerve block Monitors Used: Standard Monitors Preoperative Comments:: Feeling very anxious, would like an MKO today.
[2025-04-25] MEDS: Prednisolone 1%, Moxifloxacin 0.5%, Bromfenac 0.09% 5.6ML BTL 5.6 ML (07:38)
[2025-04-25] MEDS: Tetracaine 0.5% 4 ML BTL (07:39)
[2025-04-25 07:40] VITALS: BMI 38.0
[2025-04-25] MEDS: Moxifloxacin-PF 1 MG/ML VIAL (07:40)
[2025-04-25] MEDS: Lidocaine 1% Pres-Free 5 ML VIAL (07:40)
[2025-04-25] MEDS: Phenylephrine/Lidocaine (15/10) MG/ML 1 ML VIAL (07:41)
[2025-04-25] MEDS: Duovisc Viscoelastic System EACH 1 EACH (07:42)
[2025-04-25] MEDS: Balanced Salt Soln.-PLUS 500 ML BAG OP (07:42)
[2025-04-25] MEDS: Povidone-Iodine Ophth 30 ML BTL (07:42)
[2025-04-25 07:58] VITALS: BP 99/55; PULSE 72; RESP 16; TEMP 36.2; O2SAT 96
--- NOTE | 2025-04-25 08:03 | W.PM.DSUDISC ---
Date of service: 04/25/25 Discharge Plan Disposition Patient Disposition: Home Discharge Details Attending Provider: Robin Tejada Primary Care Provider: Neri Richards Home Meds and New Rx's Prescriptions: No Action levothyroxine 150 mcg capsule 150 mcg PO DAILY Patient Comments: takes every other day gabapentin 300 mg capsule 300 mg PO BID ferrous sulfate 325 mg (65 mg iron) tablet 325 mg PO DAILY ascorbic acid (vitamin C) 1,000 mg capsule 1,000 mg PO DAILY glimepiride 2 mg tablet 2 mg PO DAILY Patient Comments: half tab 1 mg torsemide 20 mg tablet 20 mg PO HS Patient Comments: pt. reports this morning metoprolol succinate [Toprol XL] 50 mg tablet extended release 24 hr 50 mg PO HS Patient Comments: 25 mg morning and night atorvastatin 10 mg tablet 10 mg PO QHS duloxetine 60 mg capsule,delayed release(DR/EC) 60 mg PO HS losartan 100 mg tablet 100 mg PO HS albuterol sulfate [Ventolin HFA] 90 mcg/actuation HFA aerosol inhaler 2 puff inhalation Q6H PRN Patient Comments: had slight cold cyclosporine [Restasis] 0.05 % dropperette 1 drp ophthalmic (eye) Q12H insulin glargine [Lantus Solostar U-100 Insulin] 100 unit/mL (3 mL) insulin pen 80 unit subcut QPM levothyroxine [Synthroid] 137 mcg tablet 137 mcg PO .QOD amoxicillin 500 mg capsule 2,000 mg PO ONCE Qty: 4 0RF Rx Instructions: Take antibiotics 60 minutes prior to dental work methocarbamol 500 mg tablet 500 mg PO QHS ondansetron HCl 4 mg tablet 4 mg PO Q8H nifedipine 30 mg tablet extended release 30 mg PO DAILY omeprazole 40 mg capsule,delayed release(DR/EC) 40 mg PO DAILY cholecalciferol (vitamin D3) PO DAILY montelukast [Singulair] PO montelukast 10 mg tablet 10 mg PO HS Patient Comments: TAKE 1 TABLET BY MOUTH ONCE DAILY clonazepam 0.5 mg tablet 0.5 mg PO BID PRN Patient Comments: TAKE 1 TABLET BY MOUTH TWICE DAILY NEEDED FOR ANXIETY bupropion HCl 300 mg tablet extended release 24 hr 300 mg PO DAILY famotidine 40 mg tablet 40 mg PO DAILY Fish Oil-Vit D3 1 tab PO DIRECTED Patient Comments: pt. reports Vit D3 and fish oil separate magnesium 200 mg tablet 200 mg PO DAILY Patient Comments: pt. reports 800 mg multivitamin [Daily Multi-Vitamin] Tablet 1 tab PO DAILY Patient Comments: centrum acetaminophen 500 mg tablet 1,000 mg PO Q8H PRN (Reason: pain) Qty: 90 3RF lidocaine 5 % adhesive patch,medicated 1 patch topical DAILY PRN Rx Instructions: leave on most painful area for up to 12 hrs Discharge Instructions Stand Alone Forms: DSU Post-Op Cataract, Lor Davies (DSU) Discharge Orders Discharge Orders: Discharge Order (Routine); Ordered 04/25/25 Ordered By: Robin Tejada DS: Diagnosis Discharge Diagnosis (1) Cortical age-related cataract, left eye: Status: Resolved (2) Nuclear age-related cataract, left eye: Status: Resolved
--- NOTE | 2025-04-25 08:04 | ROE_ITS ---
Operative Note Operative Note PRE-OP DIAGNOSIS: Nuclear/cortical cataract, left eye POST-OP DIAGNOSIS: same PROCEDURE: Cataract extraction using phacoemulsification with intraocular lens implant, left eye SURGEON: Robin Tejada ANESTHESIA TYPE: Local By Surgeon and MAC Refer to Anesthesia Record PATHOLOGY: none sent COMPLICATIONS: None Patient was transported to: same day Patient's condition: stable Implants: Ari Clareon [id number] Indications: Progressive decreased vision due to cataract, left eye Procedure Description: CATARACT SURGERY OPERATIVE REPORT PREOPERATIVE DIAGNOSIS: Nuclear/cortical cataract, left eye POSTOPERATIVE DIAGNOSIS: Same OPERATION: Cataract extraction using phacoemulsification with posterior chamber intraocular lens implant, left eye. IOL: IOL Bow Maker Custom/Model: Ari Clareon [id number] IOL Power: + 20.0 diopters IOL Serial Number: [id number] Optic Diameter: 6.0mm Haptic/Overall Diameter: 13.0mm PHACO INFO: Ari Centurion Vision System with OZil and Active Fluidics Cumulative Dispersed Energy (CDE): 6.09 seconds SURGEON: Robin Tejada MD, SILVER ANESTHESIA: Monitored Anesthesia Care (MAC), with local sub-tenon's anesthetic infiltration COMPLICATIONS: None SPECIMENS: None INDICATIONS FOR PROCEDURE: The patient is a 74-year-old lady with history of diminished visual acuity in her left eye secondary to the development of nuclear/cortical cataract. She is significantly symptomatic that she desires cataract surgery and attempt to improve and maximize her vision. The option of cataract surgery was offered to the patient and she wished to proceed. See office notes for detailed information. PROCEDURE: The correct surgical eye was identified and marked as the left eye and the pupil was dilated in the preoperative area using mydriatics and cycloplegics. The dilated pupil size was 7.0 mm. Oral sedation was administered in the form of an Imprimis MKO Melt (midazolam 3mg/ketamine 25mg/ondansetron 2mg). The patient elected to proceed without oral sedation. The patient was brought to the operating room where cardiopulmonary monitoring was instituted and surgical time-out was performed, confirming the correct operative eye and IOL power. Topical anesthesia was administered and ophthalmic povidone-iodine 5% was instilled into the conjunctival fornices. The esequiel-ocular area was prepped with Betadine 10% solution and draped in the usual sterile fashion for intraocular surgery, including an aperture drape. A Tegaderm transparent film dressing was cut in half and used to cover the lashes and lid margins. Care was taken to sequester the lashes and lid margins under the Tegaderm dressing. A lid speculum was placed between the lids of the operative eye and the Ari LuxOR Revalia operating microscope was maneuvered into position. Vanessa scissors were then used to make a conjunctival buttonhole approximately 6mm posterior to the limbus in the inferonasal quadrant. Blunt dissection was carried out to expose bare sclera, and a blunt-tipped sub-tenon?s anesthesia cannula was introduced and passed posteriorly along the globe where non- preserved plain lidocaine was injected into posterior sub-Tenon?s space. A sideport knife was used to make a paracentesis port. Intraocular phenylephrine/lidocaine was injected into the anterior chamber. The anterior chamber was then filled with viscoelastic. A keratome knife was used construct a two-plane clear corneal tunnel extending 2.0mm into clear cornea. A flap was raised on the anterior capsule and capsulorhexis forceps were used to complete a continuous curvilinear capsulorhexis of 5.0 mm. Balanced salt solution was then used to perform cortical cleaving hy drodissection and nuclear hydrodelineation until the lens could be freely rotated within the capsular bag. The lens nucleus was then disassembled and removed within the capsular bag and iris plane using phacoemulsification. Residual cortical material was removed using the irrigation/aspiration handpiece. The posterior capsule was carefully polished to remove as much residual lens epithelial cells as safely possible. The capsular bag was then inflated and the anterior chamber deepened with viscoelastic. The lens implant described above was inserted into the capsular bag using the Ari Autonome Injector. A Kuglen hook was used to dial the IOL into position. Residual viscoelastic was then removed first from posterior to the IOL, then from the anterior chamber using the I/A handpiece. The lens implant was noted to center nicely within the capsular bag. The incisions were stromally hydrated, and the anterior chamber was reformed using BSS. Then 0.5cc of moxifloxacin 1.0mg/ml were injected into the capsular bag and anterior chamber. The incisions were checked with a Weck spear and found to be secure. Several drops of ophthalmic povidone-iodine 5% were then applied to the eye followed by two drops of combination steroid/NSAID/antibiotic solution. The drapes were removed and a clear plastic protective eye shield was placed over the eye. The patient was then returned to Same Day Surgery in stable condition. Date of Procedure: 04/25/25
--- NOTE | 2025-04-25 08:12 | W.ANESPOSTOP ---
Postoperative Evaluation Date, Time and Location Date Performed: 04/25/25 Time Performed: 08:12 Patient Location: Day Surgery Unit Vital Signs Most Recent Imported Vital Signs: Most Recent Vital Signs Temp Pulse Resp BP Pulse Ox 36.2 C L 71 17 117/49 L 95 04/25/25 06:20 04/25/25 06:20 04/25/25 06:20 04/25/25 06:20 04/25/25 06:20 Pain Score Most Recent Pain Score: Most Recent Pain Score Pain Level 3 04/25/25 06:20 Assessment Mental Status: Awake (Alert & Oriented to Patient Baseline) Airway and Respiratory Function: Patent airway with normal (patient baseline) respiratory exam Cardiovascular Function: Hemodynamically Stable Hydration Status: Adequately Hydrated Nausea & Vomiting: No Nausea or Vomiting Pain: Pt. Denies Any Pain Peripheral Nerve Block: Other (Local by Dr. Tejada)
[2025-04-25 08:28] VITALS: BP 105/50; PULSE 71; RESP 16; TEMP 36.1; O2SAT 95
== END 2025-04-25 08:33 | disposition home or self-care (01) ==
LOC: SUR 06:14
PROVIDERS: PCP Internal Medicine; Visit Provider Ophthalmology
PROC: (CPT 66984; principal; 2025-04-25 07:30)
DX: H25.012 Cortical age-related cataract, left eye (principal); H25.12 Age-related nuclear cataract, left eye
CPT/HCPCS: 66984; 00123; V2632; J2003

== ENCOUNTER 2025-05-09 06:56 | Day surgery (SDC) | payer MEDICARE, BC, SELFPAY ==
[2025-05-09 07:20] VITALS: BP 164/60; PULSE 77; RESP 16; TEMP 36.5; O2SAT 97
[2025-05-09] MEDS: Tropicam./Phenyleph. (1/2.5%) 5 ML BTL OD ×3 (07:32→07:54)
--- NOTE | 2025-05-09 08:31 | W.ANESPRE ---
General Info Date of Service Date Performed: 05/09/25 Height: 5 ft 2 in Weight: 96.1 kg Body Mass Index (BMI): 38.7 Surgical Procedure: Operation Date: 05/09/25 09:25 Proposed Procedure Side Surgeon p Cataract Extraction with IOL Implant Right Robin Tejada MD Meds Allergies and Home Medications Allergies Allergy/AdvReac Type Severity Reaction Status Date / Time doxycycline Allergy Severe Hives Verified 05/09/25 07:26 insulin detemir (From Allergy Severe Hives Verified 05/09/25 07:26 Levemir U-100 Insulin) codeine Allergy Intermediate Hives Verified 05/09/25 07:26 gemfibrozil (From Lopid) Allergy Intermediate SWOLLEN Verified 05/09/25 07:26 LIPS glipizide Allergy Intermediate Skin Rash Verified 05/09/25 07:26 hydrochlorothiazide (From Allergy Intermediate Unknown Verified 05/09/25 07:26 Dyazide) hydrocodone (From Vicodin) Allergy Intermediate Hives Verified 05/09/25 07:26 sulfadiazine Allergy Intermediate Skin Rash Verified 05/09/25 07:26 triamterene (From Dyazide) Allergy Intermediate Unknown Verified 05/09/25 07:26 hydromorphone (From Dilaudid) Allergy Mild Hives Verified 05/09/25 07:26 lisinopril AdvReac Mild COUGH Verified 05/09/25 07:26 metformin AdvReac Mild Diarrhea Verified 05/09/25 07:26 simvastatin AdvReac ACHY Verified 05/09/25 07:26 Home Medication ?Medication ?Instructions ?Recorded albuterol sulfate 90 mcg/actuation 2 puff inhalation Q6H PRN 08/21/23 aerosol inhaler (Ventolin HFA) atorvastatin 10 mg tablet 10 mg PO QHS 08/21/23 cyclosporine 0.05 % eye drops in a 1 drp ophthalmic (eye) Q12H 08/21/23 dropperette (Restasis) duloxetine 60 mg capsule,delayed 60 mg PO HS 08/21/23 release insulin glargine 100 unit/mL (3 80 unit subcut QPM 08/21/23 mL) subcutaneous pen (Lantus Solostar U-100 Insulin) losartan 100 mg tablet 100 mg PO HS 08/21/23 metoprolol succinate 50 mg 50 mg PO HS 02/05/24 tablet,extended release 24 hr (Toprol XL) glimepiride 2 mg tablet 2 mg PO DAILY 09/05/23 torsemide 20 mg tablet 20 mg PO HS 09/05/23 levothyroxine 137 mcg tablet 137 mcg PO .QOD 10/17/23 (Synthroid) Held on 04/22/25. Instructions: Changed by Provider levothyroxine 150 mcg capsule 150 mcg PO DAILY 10/17/23 montelukast 10 mg tablet 10 mg PO HS 10/20/23 amoxicillin 500 mg capsule 2,000 mg (4 x 500 mg) PO ONCE #4 03/06/24 caps bupropion HCl 300 mg 24 hr tablet, 300 mg PO DAILY 11/18/24 extended release clonazepam 0.5 mg tablet 0.5 mg PO BID PRN 11/18/24 Fish Oil-Vit D3 1 tab PO DIRECTED 11/19/24 acetaminophen 500 mg tablet 1,000 mg (2 x 500 mg) PO Q8H PRN 11/19/24 pain #90 tabs famotidine 40 mg tablet 40 mg PO DAILY 11/19/24 Held on 04/22/25. Instructions: Changed by Provider magnesium 200 mg tablet 200 mg PO DAILY 11/19/24 multivitamin (Daily Multi-Vitamin 1 tab PO DAILY 11/19/24 tablet) cholecalciferol (vitamin D3) PO DAILY 01/21/25 methocarbamol 500 mg tablet 500 mg PO QHS 01/21/25 Held on 04/22/25. Instructions: Changed by Provider montelukast 10 mg PO DAILY 01/21/25 nifedipine 30 mg tablet,extended 30 mg PO DAILY 01/21/25 release Held on 04/22/25. Instructions: Changed by Provider ondansetron HCl 4 mg tablet 4 mg PO Q8H 01/21/25 ascorbic acid (vitamin C) 1,000 mg 1,000 mg PO DAILY 02/10/25 capsule ferrous sulfate 325 mg (65 mg 325 mg PO DAILY 02/10/25 iron) tablet gabapentin 300 mg capsule 300 mg PO BID 02/10/25 lidocaine 5 % topical patch 1 patch topical DAILY PRN 04/22/25 Current Visit Medications: Current Medications Generic Name Dose Route Start Last Admin Trade Name Freq PRN Reason Stop Dose Admin Acetaminophen 1,000 mg 05/09/25 06:00 Acetaminophen 500 Mg Tab PO 06/08/25 05:59 Q4H PRN PRN Balanced Salt Solution 500 ml 05/09/25 06:00 Balanced Salt Soln.-Plus 500 Ml Bag OP 06/08/25 05:59 DIRECTED VIKTOR Miscellaneous Medication 0 ml 05/09/25 06:00 Prednisolone 1%, Moxifloxacin 0.5%, Bromfenac 0.09% 5.6ml Btl OD 06/08/25 05:59 DIRECTED VIKTOR Miscellaneous Medication 0 ml 05/09/25 06:00 05/09/25 07:54 Tropicam./Phenyleph. (1/2.5%) 5 Ml Btl OD 06/08/25 05:59 1 drp DIRECTED VIKTOR Administration Tetracaine HCl 0 ml 05/09/25 06:00 Tetracaine 0.5% 4 Ml Btl OD 06/08/25 05:59 DIRECTED VIKTOR PFSH Active Problems Active Problems: Problem Status Onset Code Cortical age-related cataract, right eye Acute H25.011 Nuclear age-related cataract, right eye Acute H25.11 Cortical age-related cataract, left eye Resolved H25.012 Nuclear age-related cataract, left eye Resolved H25.12 Rotator cuff tear arthropathy of right shoulder Acute M75.101, M12.811 Tobacco dependence Acute F17.200 Polymyalgia rheumatica Acute M35.3 Psoriasis Chronic L40.9 Collagenous colitis Acute K52.831 GERD (gastroesophageal reflux disease) Chronic K21.9 COPD (chronic obstructive pulmonary disease) Chronic J44.9 Essential hypertension Acute I10 AYLA (obstructive sleep apnea) Chronic G47.33 Nicotine dependence Acute F17.200 Anxiety Chronic F41.9 Hyperlipidemia Acute E78.5 Type 2 diabetes mellitus Acute E11.9 Hypothyroidism Chronic E03.9 Non-toxic multinodular goiter Acute E04.2 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 Acute C44.601 Medical History Medical History Stercoral colitis Pleurisy Tobacco user Stress fracture of right tibia with routine healing Psychophysiologic insomnia Osteoarthritis of knee Idiopathic osteoporosis of forearm History of injury Hepatomegaly GERD without esophagitis Family history of cardiovascular disease Dysphagia Distal radius fracture, right Diarrhea Crystal arthropathy Cough Calcaneal spur Bifascicular block Anemia Allergic rhinitis Acute exacerbation of chronic obstructive airways disease Actinic keratitis Acquired absence of uterus Acquired absence of cervix Tendonitis of long head of biceps brachii of right shoulder Rotator cuff tear, right (~07/30/23) Rupture of left rotator cuff History of urinary stone Chest pain Per pt. states it was just a one time thing, i had it worked up and it ended up being nothing Palpitations Low back pain Gout Non-scarring alopecia Actinic keratosis Nummular eczema Chronic ethmoidal sinusitis Chronic serous otitis media Migraine Medical History Comments:: Upcoming back surgery 05/19. Unable to lay flat she reports; very uncomfortable' for breathing Surgical History Surgical History History of total right knee replacement (11/19/24) S/P rotator cuff repair H/O arthroscopy of knee Hx of colonoscopy 08/14/2023, 02/24/2021 History of thyroidectomy History of partial hysterectomy 1975 History of cholecystectomy 1980 History of appendectomy Tobacco Smoking/Tobacco Use Status: Current every day Tobacco Type: cigarettes Passive smoking exposure: Yes Alcohol Alcohol Intake: former Substance Use Substance use: Never Substance use type: does not use Vital Signs and Lab Results Vital Signs Most Recent Vital Signs in EMR: Most Recent Vital Signs Temp Pulse Resp BP Pulse Ox 36.5 C 77 16 164/60 H 97 05/09/25 07:20 05/09/25 07:20 05/09/25 07:20 05/09/25 07:20 05/09/25 07:20 Point of Care Results Point of Care Results: Finger Stick Blood Glucose 188 05/09/25 07:51 Lab Results Complete Blood Count: WBC, (4.4-10.8) 8.31 10^3/uL 04/09/25, 14:25 RBC, (3.93-5.22) 3.79 10^6/uL L 04/09/25, 14:25 Hgb, (11.2-15.7) 11.2 g/dL 04/09/25, 14:25 Hct, (36.0-46.0) 35.1 % L 04/09/25, 14:25 Plt Count, (130-400) 152 10^3/uL 04/09/25, 14:25 Thyroid Panel: TSH, (0.36-3.74) 4.71 uIU/mL H 04/09/25, 14:25 Anesthesia Assessment and Plan Anesthesia History Personal History: No History of Anesthesia Complications Family History: No Family History of Anesthesia Complications Exercise Tolerance Exercise Tolerance: Metabolic Equivalents>4 Pertinent Negatives Pertinent Negatives: Other ((+) GERD, currently untreated) Cardiac & Pulmonary Exam Cardiac Exam: Normal S1/S2 Heart Sounds Pulmonary Exam: Clear Bilateral Breath Sounds Implantable Cardiac Device Does patient have a Pacemaker or an ICD?: No Airway Exam Known Difficult Airway: No Mallampati Class: 2 Mouth Opening: Normal (> 3cm) Thyromental Distance: Less than 3 cm Neck Range of Motion: Full ROM Neck Circumference: Normal Teeth Condition: Normal Dentition ASA Classification ASA Score: ASA 3 Emergency Case?: No NPO Status NPO Status: NPO Clears >2 hours, Solids >8 hours Anesthesia Plan Resuscitation Status: Full Code Anesthesia Technique: MAC Anesthesia Airway Planned: Natural Airway Monitors Used: Standard Monitors
[2025-05-09 08:32] VITALS: BMI 38.7
[2025-05-09 08:39] VITALS: BP 123/54; PULSE 73; RESP 15; O2SAT 96
[2025-05-09] MEDS: Lidocaine 1% Pres-Free 5 ML VIAL (09:18)
[2025-05-09] MEDS: Duovisc Viscoelastic System EACH 1 EACH (09:18)
[2025-05-09] MEDS: Moxifloxacin-PF 1 MG/ML VIAL (09:19)
[2025-05-09] MEDS: Phenylephrine/Lidocaine (15/10) MG/ML 1 ML VIAL (09:20)
[2025-05-09] MEDS: Povidone-Iodine Ophth 30 ML BTL (09:21)
[2025-05-09] MEDS: Balanced Salt Soln.-PLUS 500 ML BAG OP (09:22)
[2025-05-09] MEDS: Prednisolone 1%, Moxifloxacin 0.5%, Bromfenac 0.09% 5.6ML BTL OD (09:23)
[2025-05-09] MEDS: Tetracaine 0.5% 4 ML BTL OD (09:24)
[2025-05-09 09:39] VITALS: BP 129/57; PULSE 75; RESP 16; TEMP 36.3; O2SAT 95
--- NOTE | 2025-05-09 09:39 | W.PM.DSUDISC ---
Date of service: 05/09/25 Discharge Plan Disposition Patient Disposition: Home Discharge Details Attending Provider: Robin Tejada Primary Care Provider: Neri Richards Home Meds and New Rx's Prescriptions: No Action levothyroxine 150 mcg capsule 150 mcg PO DAILY Patient Comments: takes every other day gabapentin 300 mg capsule 300 mg PO BID ferrous sulfate 325 mg (65 mg iron) tablet 325 mg PO DAILY ascorbic acid (vitamin C) 1,000 mg capsule 1,000 mg PO DAILY glimepiride 2 mg tablet 2 mg PO DAILY Patient Comments: half tab 1 mg torsemide 20 mg tablet 20 mg PO HS Patient Comments: pt. reports this morning metoprolol succinate [Toprol XL] 50 mg tablet extended release 24 hr 50 mg PO HS Patient Comments: 25 mg morning and night atorvastatin 10 mg tablet 10 mg PO QHS duloxetine 60 mg capsule,delayed release(DR/EC) 60 mg PO HS losartan 100 mg tablet 100 mg PO HS albuterol sulfate [Ventolin HFA] 90 mcg/actuation HFA aerosol inhaler 2 puff inhalation Q6H PRN Patient Comments: had slight cold cyclosporine [Restasis] 0.05 % dropperette 1 drp ophthalmic (eye) Q12H insulin glargine [Lantus Solostar U-100 Insulin] 100 unit/mL (3 mL) insulin pen 80 unit subcut QPM levothyroxine [Synthroid] 137 mcg tablet 137 mcg PO .QOD amoxicillin 500 mg capsule 2,000 mg PO ONCE Qty: 4 0RF Rx Instructions: Take antibiotics 60 minutes prior to dental work methocarbamol 500 mg tablet 500 mg PO QHS ondansetron HCl 4 mg tablet 4 mg PO Q8H nifedipine 30 mg tablet extended release 30 mg PO DAILY cholecalciferol (vitamin D3) PO DAILY montelukast [Singulair] 10 mg PO DAILY montelukast 10 mg tablet 10 mg PO HS Patient Comments: TAKE 1 TABLET BY MOUTH ONCE DAILY clonazepam 0.5 mg tablet 0.5 mg PO BID PRN Patient Comments: TAKE 1 TABLET BY MOUTH TWICE DAILY NEEDED FOR ANXIETY bupropion HCl 300 mg tablet extended release 24 hr 300 mg PO DAILY famotidine 40 mg tablet 40 mg PO DAILY Fish Oil-Vit D3 1 tab PO DIRECTED Patient Comments: pt. reports Vit D3 and fish oil separate magnesium 200 mg tablet 200 mg PO DAILY Patient Comments: pt. reports 800 mg multivitamin [Daily Multi-Vitamin] Tablet 1 tab PO DAILY Patient Comments: centrum acetaminophen 500 mg tablet 1,000 mg PO Q8H PRN (Reason: pain) Qty: 90 3RF lidocaine 5 % adhesive patch,medicated 1 patch topical DAILY PRN Rx Instructions: leave on most painful area for up to 12 hrs Discharge Instructions Stand Alone Forms: DSU Post-Op Cataract, Lor Davies (DSU) Discharge Orders Discharge Orders: Discharge Order (Routine); Ordered 05/09/25 Ordered By: Robin Tejada DS: Diagnosis Discharge Diagnosis (1) Cortical age-related cataract, right eye: Status: Resolved (2) Nuclear age-related cataract, right eye: Status: Resolved
--- NOTE | 2025-05-09 09:40 | ROE_ITS ---
Operative Note Operative Note PRE-OP DIAGNOSIS: Nuclear/cortical cataract, right eye POST-OP DIAGNOSIS: same PROCEDURE: Cataract extraction using phacoemulsification with intraocular lens implant, right eye SURGEON: Robin Tejada ANESTHESIA TYPE: Local By Surgeon and MAC Refer to Anesthesia Record ESTIMATED BLOOD LOSS: 0 PATHOLOGY: none sent COMPLICATIONS: None Patient was transported to: same day Patient's condition: stable Implants: Ari Clareon [id number] Indications: Progressive decreased vision due to cataract, right eye Procedure Description: CATARACT SURGERY OPERATIVE REPORT PREOPERATIVE DIAGNOSIS: Nuclear/cortical cataract, right eye POSTOPERATIVE DIAGNOSIS: Same OPERATION: Cataract extraction using phacoemulsification with posterior chamber intraocular lens implant, right eye. IOL: IOL Lathing Supervisor/Model: Ari Clareon [id number] IOL Power: + 19.5 diopters IOL Serial Number: [id number] Optic Diameter: 6.0mm Haptic/Overall Diameter: 13.0mm PHACO INFO: Ari Centurion Vision System with OZil and Active Fluidics Cumulative Dispersed Energy (CDE): 6.41 seconds SURGEON: Robin Tejada MD, SILVER ANESTHESIA: Monitored Anesthesia Care (MAC), with local sub-tenon's anesthetic infiltration COMPLICATIONS: None SPECIMENS: None INDICATIONS FOR PROCEDURE: The patient is a 74-year-old lady with history of diminished visual acuity in both eyes secondary to the development of bilateral nuclear/cortical cataract. She has already undergone cataract surgery in the left eye and is doing well postoperatively. She now presents for cataract surgery in the right eye. See office notes for detailed information. PROCEDURE: The correct surgical eye was identified and marked as the right eye and the pupil was dilated in the preoperative area using mydriatics and cycloplegics. The dilated pupil size was 7.0 mm. Oral sedation was administered in the form of an Imprimis MKO Melt (midazolam 3mg/ketamine 25mg/ondansetron 2mg). The patient was brought to the operating room where cardiopulmonary monitoring was instituted and surgical time-out was performed, confirming the correct operative eye and IOL power. Topical anesthesia was administered and ophthalmic povidone-iodine 5% was instilled into the conjunctival fornices. The esequiel-ocular area was prepped with Betadine 10% solution and draped in the usual sterile fashion for intraocular surgery, including an aperture drape. A Tegaderm transparent film dressing was cut in half and used to cover the lashes and lid margins. Care was taken to sequester the lashes and lid margins under the Tegaderm dressing. A lid speculum was placed between the lids of the operative eye and the Ari LuxOR Revalia operating microscope was maneuvered into position. Vanessa scissors were then used to make a conjunctival buttonhole approximately 6mm posterior to the limbus in the inferonasal quadrant. Blunt dissection was carried out to expose bare sclera, and a blunt-tipped sub-tenon?s anesthesia cannula was introduced and passed posteriorly along the globe where non- preserved plain lidocaine was injected into posterior sub-Tenon?s space. A sideport knife was used to make a paracentesis port. Intraocular phenylephrine/lidocaine was injected into the anterior chamber. The anterior chamber was then filled with viscoelastic. A keratome knife was used to construct a two--plane clear corneal tunnel extending 2.0mm into clear cornea. A flap was raised on the anterior capsule and capsulorhexis forceps were used to complete a continuous curvilinear capsulorhexis of 5.0 mm. Capsulorhexis was challenging due to constant patient eye movement and inability to fixate. Even with stabilizing the globe with toothed forceps intraocular movements were challenging. Balanced salt solution was then used to perform cortical cleaving hydrodissection and nuclear hydrodelineation until the lens could be freely rotated within the capsular bag. The lens nucleus was then disassembled and removed within the capsular bag and iris plane using phacoemulsification. Residual cortical material was removed using the I/A handpiece. The posterior capsule was carefully polished to remove as much residual lens epithelial cells as safely possible. The capsular bag was then inflated and the anterior chamber deepened with cohesive viscoelastic. The lens implant described above was inserted into the capsular bag using the Ari Autonome Injector. A Kuglen hook was used to dial the IOL into position. Residual viscoelastic was then removed first from posterior to the IOL, then from the anterior chamber using the I/A handpiece. The lens implant was noted to center nicely within the capsular bag. The incisions were stromally hydrated, and the anterior chamber was reformed using BSS. Then 0.5cc of moxifloxacin 1.0mg/ml were injected into the capsular bag and anterior chamber. The incisions were checked with a Weck spear and found to be secure. Several drops of ophthalmic povidone-iodine 5% were then applied to the eye followed by two drops of combination steroid/NSAID/antibiotic solution. The drapes were removed and a clear plastic protective eye shield was placed over the eye. The patient was then returned to Same Day Surgery in stable condition. Date of Procedure: 05/09/25
--- NOTE | 2025-05-09 09:48 | W.ANESPOSTOP ---
Postoperative Evaluation Date, Time and Location Date Performed: 05/09/25 Time Performed: 09:48 Patient Location: Day Surgery Unit Vital Signs Most Recent Imported Vital Signs: Most Recent Vital Signs Temp Pulse Resp BP Pulse Ox 36.5 C 73 15 123/54 L 96 05/09/25 07:20 05/09/25 08:39 05/09/25 08:39 05/09/25 08:39 05/09/25 08:39 Pain Score Most Recent Pain Score: Most Recent Pain Score Pain Level 5 05/09/25 07:20 Assessment Mental Status: Awake (Alert & Oriented to Patient Baseline) Airway and Respiratory Function: Patent airway with normal (patient baseline) respiratory exam Cardiovascular Function: Hemodynamically Stable Hydration Status: Adequately Hydrated Nausea & Vomiting: No Nausea or Vomiting Pain: Pt. Denies Any Pain Peripheral Nerve Block: Patient did not receive a nerve block
[2025-05-09 09:55] VITALS: BP 129/59; PULSE 70; RESP 14; TEMP 36; O2SAT 95
== END 2025-05-09 10:01 | disposition home or self-care (01) ==
LOC: SUR 06:57
PROVIDERS: PCP Internal Medicine; Visit Provider Ophthalmology
PROC: (CPT 66984; principal; 2025-05-09 09:15)
DX: H25.011 Cortical age-related cataract, right eye (principal); H25.11 Age-related nuclear cataract, right eye; Z98.42 Cataract extraction status, left eye
CPT/HCPCS: 66984; 00123; V2632; J2003

== ENCOUNTER 2025-05-21 20:34 | Outpatient (REF) | payer MEDICARE, BC, SELFPAY ==
[2025-05-21 21:18] LABS: Anion Gap 9.1 mmol/L (3-11); BUN 16 mg/dL (7-18); CO2 27.9 mmol/L (21.0-32.0); Calcium 8.1 mg/dL (8.5-10.1); Chloride 105 mmol/L (98-107); Glucose 242 mg/dL (74-106); Potassium 4.3 mmol/L (3.5-5.1); Sodium 142 mmol/L (136-145); TSH (W/Ref FT4) 2.09 uIU/mL (0.36-3.74)
== END 2025-05-21 20:35 | disposition home or self-care (01) ==
LOC: NCHCN 20:34
PROVIDERS: PCP Internal Medicine; Visit Provider Nurse Practitioner Family
DX: R60.0 Localized edema (principal)
CPT/HCPCS: 80048; 84443

== ENCOUNTER 2025-05-22 11:56 | Outpatient (REF) | payer MEDICARE, BC, SELFPAY ==
[2025-05-22 19:54] LABS: ALT 27 U/L (14-59); AST 20 U/L (15-37); Albumin 3.7 g/dL (3.4-5.0); Alkaline Phosphatase 92 U/L (46-116); Anion Gap 10.5 mmol/L (3-11); BUN 18 mg/dL (7-18); Bilirubin, Total 0.4 mg/dL (0.2-1.0); CO2 29.5 mmol/L (21.0-32.0); Calcium 8.7 mg/dL (8.5-10.1); Chloride 103 mmol/L (98-107); Glucose 191 mg/dL (74-106); Magnesium 1.7 mg/dL (1.8-2.4); Potassium 4.2 mmol/L (3.5-5.1); Sodium 143 mmol/L (136-145); Total Protein 7.0 g/dL (6.4-8.2)
[2025-05-27 13:18] LABS: 1,25-Dihydroxyvitamin D 35 pg/mL (18-78)
== END 2025-05-22 11:57 | disposition home or self-care (01) ==
LOC: NCHCN 11:56
PROVIDERS: PCP Internal Medicine; Visit Provider Nurse Practitioner Family
DX: E83.51 Hypocalcemia (principal)
CPT/HCPCS: 80053; 82652; 83735; 83970; 84100